=== PATIENT | female | born 1935 | race Caucasian/White ===

== ENCOUNTER → 2018-02-25 10:27 | Outpatient (CLI) | payer MEDICARE, OTHER, SELFPAY ==
--- NOTE | 2018-02-25 10:44 | XR_ITS ---
XR foot RT min 3V HISTORY: Posttraumatic pain ITS.REASON: RT FOOT PAIN ORDERING PHYSICIAN: Skinny Mackay MD PATIENT AGE: 82 years COMPARISON: None FINDINGS: There are osteoarthritic changes at the first metatarsophalangeal joint with some heterogeneity of the distal aspect of the first metatarsal. Has the patient had prior surgery?. There is mild soft tissue swelling at the medial aspect of the first MTP joint with minimal hallux valgus. There is also minimal soft tissue calcification medially at the first MTP joint. There is fusion of the PIP joint of the second digit and soft tissue calcification is noted laterally at the PIP joint of the fifth digit. No fracture or dislocation. The sesamoids at the distal aspect of the first metatarsal are slightly displaced laterally. IMPRESSION: 1. No acute fracture. 2. 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
== END ==
PROVIDERS: PCP Internal Medicine Adolescent Medicine; Visit Provider Internal Medicine Adolescent Medicine
DX: M79.671 Pain in right foot (principal)
CPT/HCPCS: 73630

== ENCOUNTER → 2018-02-26 10:09 | Outpatient (CLI) | payer MEDICARE, OTHER, SELFPAY ==
[2018-02-26 10:30] LABS: Basophils % 0.8 % (0.1-2.0); Eosinophils # 0.2 K/mm3 (0.0-0.4); Eosinophils % 2.6 % (0.1-12.0); Hematocrit 41.9 % (37.0-47.0); Hemoglobin 13.8 g/dL (12.2-16.2); Lymphocytes # 2.2 K/mm3 (0.7-4.5); Lymphocytes % 36.9 K/mm3 (10-50); Mean Corpuscular Hemoglobin 31.8 pg (27.0-31.2); Mean Corpuscular Volume 96.4 fl (81-99); Mean Platelet Volume 6.6 fl (7.4-10.4); Monocytes # 0.4 K/mm3 (0.1-1.0); Monocytes % 7.2 % (1.7-9.3); Neutrophils # 3.1 K/mm3 (1.8-7.8); Neutrophils % 52.5 % (37.0-80.0); Platelet Count 282 K/mm3 (142-424); Red Blood Count 4.35 M/mm3 (4.20-5.40); Red Cell Distribution Width 12.4 % (11.5-17.5); White Blood Count 5.9 K/mm3 (4.8-10.8)
[2018-02-26 11:43] LABS: Alanine Aminotransferase 30 U/L (12-78); Albumin Level 3.5 gm/dL (3.4-5.0); Alkaline Phosphatase 118 U/L (46-116); Anion Gap 13.1 mEq/L (5-15); Aspartate Amino Transferase 25 U/L (15-37); Bilirubin,Total 0.7 mg/dL (0.2-1.0); Blood Urea Nitrogen 16 mg/dL (7-18); Calcium 8.9 mg/dL (8.5-10.1); Carbon Dioxide 28 mmol/L (21.0-32.0); Chloride 104 mmol/L (98-107); Chol/HDL Ratio 3.4 (1-3.5); Cholesterol 173 mg/dL (140-200); Creatinine,Serum 0.75 mg/dL (0.55-1.02); Estimated Glomerular Filt Rate 74 ml/min (>60); Free Thyroxine Index 2.1 ug/dL (5.93-13.13); GFR (African American) 90 ML/MIN (>60); Globulin 3.4 gm/dl (1.3-3.2); Glucose 116 mg/dL (74-106); HDL Cholesterol 51 mg/dL (29-89); LDL Cholesterol 98 mg/dL (0-130); Potassium 5.1 mmoL/L (3.5-5.1); Sodium 140 mmol/L (136-145); T4 (Thyroxine) 6.3 ug/dl (4.7-13.3); Thyroid Stimulating Hormone 6.56 uIU/ml (0.358-3.740); Total Protein,Serum 6.9 gm/dL (6.4-8.2); Triglycerides 122 mg/dL (30-200); Triiodothryronine (T3) Uptake 33 % (31-39); VLDL Cholesterol 24 mg/dL (0-40)
[2018-02-26 12:05] LABS: Hemoglobin A1C 6.5 % (0.0-7.0)
== END ==
PROVIDERS: Visit Provider Internal Medicine Adolescent Medicine
DX: J84.10 Pulmonary fibrosis, unspecified (principal); R73.9 Hyperglycemia, unspecified; I10 Essential (primary) hypertension; E03.9 Hypothyroidism, unspecified
CPT/HCPCS: 36415; 80053; 80061; 83036; 84436; 84443; 84479; 85025

== ENCOUNTER → 2018-04-15 16:31 | Outpatient (CLI) | payer MEDICARE, OTHER, SELFPAY ==
--- NOTE | 2018-04-15 16:36 | MM_ITS ---
MM Dig screening mamm BI w/CAD CAD Screening COMPARISON: Digital mammograms with CAD 10/01/2016 and 09/28/2015 from [place], [place] INDICATION: There is a history of breast cancer in the patient's half sister diagnosed after menopause. TECHNIQUE: Standard CC and MLO images were obtained. R2 CAD reviewed. FINDINGS: The breasts are composed primarily of fat with minimal scattered fibroglandular densities throughout each breast. There are couple benign-appearing calcifications in each breast. There is no suspicious lesion and there are no suspicious microcalcifications. IMPRESSION: Fatty type breast parenchyma with no suspicious lesion seen BI-RADS Category: 2 Benign Finding(s) RECOMMENDED FOLLOW-UP: 1YR - 1 YEAR FOLLOW-UP (A letter has been sent to the patient regarding results of the study.)
== END ==
PROVIDERS: PCP Internal Medicine Adolescent Medicine; Visit Provider Internal Medicine Adolescent Medicine
DX: Z12.31 Encounter for screening mammogram for malignant neoplasm of breast (principal)
CPT/HCPCS: 77067

== ENCOUNTER → 2018-07-01 11:53 | Outpatient (CLI) | payer MEDICARE, SELFPAY ==
[2018-07-01 13:16] LABS: Thyroid Stimulating Hormone 4.28 uIU/ml (0.358-3.740)
== END ==
PROVIDERS: Visit Provider Internal Medicine Adolescent Medicine
DX: E03.9 Hypothyroidism, unspecified (principal)
CPT/HCPCS: 36415; 84443

== ENCOUNTER → 2018-07-08 16:30 | Outpatient (CLI) | payer MEDICARE, SELFPAY ==
--- NOTE | 2018-07-08 16:37 | XR_ITS ---
XR hip LT 2-3V w/pelvis HISTORY: Hip pain following injury ORDERING PHYSICIAN: Skinny Mackay MD PATIENT AGE: 83 years COMPARISON: None FINDINGS: There are mild osteoarthritic changes with some mild bony spurring at the acetabulum. No acute fracture or dislocation. IMPRESSION: Mild osteoarthritis, no acute finding
--- NOTE | 2018-07-08 16:37 | XR_ITS ---
EXAM: XR lumbar spine min 4V HISTORY: Low back pain following injury ORDERING PHYSICIAN: Skinny Mackay MD PATIENT AGE: 83 years COMPARISON: None FINDINGS: There is mild thoracolumbar curvature convex right. Multilevel degenerative disc disease is present from L2 to S1. Endplate osteophytes are present with decrease in the disc spaces. Facet arthritic changes are also noted from L3 to S1. No acute fracture or dislocation is evident. No lytic or blastic change. IMPRESSION: Scoliosis with degenerative disc disease and facet arthritic change, no acute finding
--- NOTE | 2018-07-08 16:38 | XR_ITS ---
XR hip RT 2-3V w/pelvis HISTORY: ITS.REASON: LUMBAR PAIN, BILATERAL HIP PAIN ORDERING PHYSICIAN: Skinny Mackay MD PATIENT AGE: 83 years COMPARISON: None FINDINGS: There are mild osteoarthritic changes of the right hip. No acute fracture or dislocation is evident. A well-circumscribed calcific density is present at the greater trochanter and could be due to an old avulsion injury or accessory center of ossification IMPRESSION: Osteoarthritis, no acute finding
== END ==
PROVIDERS: PCP Internal Medicine Adolescent Medicine; Visit Provider Internal Medicine Adolescent Medicine
DX: M54.5 Low back pain (principal); M25.552 Pain in left hip; M25.551 Pain in right hip
CPT/HCPCS: 72110; 73502

== ENCOUNTER → 2019-03-17 10:52 | Outpatient (CLI) | payer MEDICARE, SELFPAY ==
--- NOTE | 2019-03-17 10:55 | XR_ITS ---
PROCEDURE: XR CHEST 2V CLINICAL HISTORY: COUGH Cough, infection COMPARISON: CXR CHEST(2 VIEWS-NOT PORTABLE) from 10/12/2015 FINDINGS: Borderline cardiomegaly without failure. There are increased markings in the right lung base which could be due to patchy area of infiltrate. Tortuosity/ectasia involves the descending thoracic aorta. No acute bony abnormalities. IMPRESSION: Patchy infiltrate in the right lower lobe Dictated by: Hiram Macias MD 03/17/2019 18:17 Electronically signed by Hiram Macias MD in [facility] 03/17/2019 18:17
== END ==
PROVIDERS: PCP Internal Medicine Adolescent Medicine; Visit Provider Internal Medicine Adolescent Medicine
DX: R05 Cough (principal)
CPT/HCPCS: 71046

== ENCOUNTER → 2019-04-03 12:08 | Outpatient (CLI) | payer MEDICARE, SELFPAY ==
--- NOTE | 2019-04-03 12:16 | XR_ITS ---
PROCEDURE: XR CHEST 2V CLINICAL HISTORY: PNEUMONIA OF RIGHT LOWER LOBE COMPARISON: CXR CHEST(2 VIEWS-NOT PORTABLE) from 10/12/2015 XR CHEST 2V from 03/17/2019 FINDINGS: The cardiomediastinal silhouette and pulmonary vascularity are within normal limits. There is chronic coarsening of the bronchovascular markings. No lobar consolidation or collapse is evident. Patchy density previously noted in the lung base on the right is improved. No acute bony abnormalities. IMPRESSION: No acute findings. Dictated by: Hiram Macias MD 04/03/2019 12:24 Electronically signed by Hiram Macias MD in [facility] 04/03/2019 12:24
== END ==
PROVIDERS: PCP Internal Medicine Adolescent Medicine; Visit Provider Nurse Practitioner Family
DX: J18.9 Pneumonia, unspecified organism (principal)
CPT/HCPCS: 71046

== ENCOUNTER → 2019-07-02 11:01 | Outpatient (CLI) | payer MEDICARE, SELFPAY ==
--- NOTE | 2019-07-02 11:09 | XR_ITS ---
PROCEDURE: XR CHEST 2V CLINICAL HISTORY: COUGH,PULMONARY FIBROSIS COMPARISON: CXR CHEST(2 VIEWS-NOT PORTABLE) from 10/12/2015 XR CHEST 2V from 03/17/2019 XR CHEST 2V from 04/03/2019 FINDINGS: The lung kolb are well-expanded and appear clear of infiltrate. There may be minimal scarring or atelectasis at the left costophrenic angle. Cardiac size is normal though there is mild aortic tortuosity. The vascularity is normal. There is no pleural fluid. There are mild multilevel degenerate changes of the lower thoracic spine. IMPRESSION: No acute findings. Dictated by: Dr. Isai Guillen MD 07/02/2019 12:[address] Isai Guillen MD in [facility] 07/02/2019 12:17
== END ==
PROVIDERS: PCP Internal Medicine Adolescent Medicine; Visit Provider Internal Medicine Adolescent Medicine
DX: R05 Cough (principal); J84.112 Idiopathic pulmonary fibrosis
CPT/HCPCS: 71046

== ENCOUNTER → 2019-11-25 14:09 | Outpatient (CLI) | payer MEDICARE, SELFPAY | PROVIDERS: PCP Internal Medicine Adolescent Medicine; Visit Provider Internal Medicine Adolescent Medicine | DX: R06.00 Dyspnea, unspecified (principal) | CPT/HCPCS: 94060; 94618; 94726; 94729 ==

== ENCOUNTER → 2019-12-16 10:19 | Outpatient (CLI) | payer MEDICARE, SELFPAY ==
--- NOTE | 2019-12-16 10:22 | CT_ITS ---
PROCEDURE: CT CHEST WO CON CLINICAL INDICATION: IDIOPATHIC PULMONARY FIBROSIS Soa, idiopathic pulm. Fibrosis No prior COMPARISON: No exams were available for comparison TECHNIQUE: Axial images obtained with sagittal and coronal reformats. All CT scans at the facility use one or more dose reduction, viz: automated exposure control, ma/kV adjustment per patient size (including targeted exams where dose is matched to indication, i.e. head), or iterative reconstruction technique. FINDINGS: HEART AND MEDIASTINAL STRUCTURES: No mediastinal or hilar mass or adenopathy. There is a small hiatal hernia with mild nonspecific thickening of the distal esophagus. LUNGS AND PLEURAL SPACES: Regular and high-resolution images are obtained. There is peripheral interlobular septal thickening most prominent in the lung bases with some minimal honeycombing in the lung bases. No lobar consolidation or collapse. There is a calcified granuloma in the right lung base. BONY STRUCTURES: No acute bony abnormalities apparent. UPPER ABDOMEN: Prior cholecystectomy ADDITIONAL FINDINGS: No other significant abnormalities. IMPRESSION: Pulmonary fibrosis as described above with some mild honeycombing in the lung bases. Dictated by: Hiram Macias MD 12/17/2019 10:46 Hiram Macias MD in [facility] 12/17/2019 10:46
== END ==
PROVIDERS: PCP Internal Medicine Adolescent Medicine; Visit Provider Internal Medicine Adolescent Medicine
DX: J84.112 Idiopathic pulmonary fibrosis (principal)
CPT/HCPCS: 71250

== ENCOUNTER → 2019-12-27 14:18 | Outpatient (CLI) | payer MEDICARE, SELFPAY ==
--- NOTE | 2019-12-27 14:19 | CA_ITS ---
APPROVED REPORT EXAM: Comprehensive 2D, Doppler, and color-flow Echocardiogram Still Operator Whiskey: Osiris Patel RDCS Ht: 5 ft 6 in Wt: 156lbs BSA: 1.80 BP: 110/70 mmHg Indications: SOA,PULMONARY FIBROSIS 2D Dimensions LVOT 2.08 cm (M/F) 1.5-2.5 M-Mode Dimensions RVDd 2.61 cm (0.9-2.6) LVDd 4.87 cm (3.5-5.7) LVDs 3.29 cm (3.5-5.7) IVSd 0.74 cm (0.6-1.1) PWd 0.74 cm (0.6-1.1) EF (Teich) 60.60% FS 32.40% EDV (Teich) 111.20 mL ESV (Teich) 43.80 mL LV Diastology E/A Ratio 0.45 Mitral Valve MV A Velocity 92.00 (40-130 cm/s) Left Ventricle Left atrium is mildly enlarged, left ventricle is normal size, mild concentric left ventricular hypertrophy, visually estimated ejection fraction 55% with no regional wall motion abnormality, grade 1 diastolic dysfunction seen without tissue Doppler evidence of raise left atrial pressure. Right Ventricle Right atrium and right ventricular normal size and contractility. Aortic Valve Aortic valve is minimally thickened and fibrosed, there is no aortic stenosis, there is mild aortic insufficiency. Mitral Valve Mitral valve is minimally thickened, there is mild mitral regurgitation. Tricuspid Valve Tricuspid valve is grossly normal, there is mild tricuspid regurgitation, tricuspid regurgitation jet velocity is inadequate for calculation of the right ventricular systolic pressure. Pulmonic Valve Pulmonic valve is poorly visualized. Great Vessels Aortic root is normal size. Pericardium No significant pericardial effusion noted. Conclusion 1. Mildly enlarged left atrium, normal left ventricular size, mild concentric left ventricular hypertrophy, visually estimated ejection fraction 55% with no regional wall motion abnormality, grade 1 diastolic dysfunction seen without tissue Doppler evidence of raise left atrial pressure. 2. Thickened and calcified aortic valve without aortic stenosis, there is trace aortic insufficiency. 3. Mild mitral and tricuspid regurgitation. 4. No significant pericardial effusion noted. Electronically signed by : Shashank Neal, 12/27/2019 19:11:48
== END ==
PROVIDERS: PCP Internal Medicine Adolescent Medicine; Visit Provider Internal Medicine Pulmonary Disease
DX: R06.00 Dyspnea, unspecified (principal)
CPT/HCPCS: 93306

== ENCOUNTER → 2019-12-30 12:22 | Outpatient (CLI) | payer MEDICARE, SELFPAY ==
[2019-12-30 13:01] LABS: Basophils # 0.1 K/mm3 (0-0.2); Basophils % 0.8 % (0.1-2.0); Eosinophils # 0.3 K/mm3 (0.0-0.4); Eosinophils % 3.6 % (0.1-12.0); Hematocrit 45.3 % (37.0-47.0); Lymphocytes # 3.2 K/mm3 (0.7-4.5); Lymphocytes % 36.6 % (10-50); Mean Corpuscular HGB Conc 33.1 g/dL (31.8-35.4); Mean Corpuscular Hemoglobin 32.5 pg (27.0-31.2); Mean Corpuscular Volume 98.1 fl (81-99); Mean Platelet Volume 6.8 fl (7.4-10.4); Monocytes # 0.6 K/mm3 (0.1-1.0); Monocytes % 7.1 % (1.7-9.3); Neutrophils # 4.6 K/mm3 (1.8-7.8); Platelet Count 290 K/mm3 (142-424); Red Blood Count 4.62 M/mm3 (4.20-5.40); Red Cell Distribution Width 12.9 % (11.5-17.5); White Blood Count 8.8 K/mm3 (4.8-10.8)
[2019-12-30 13:47] LABS: Anion Gap 12.8 mEq/L (5-15); Blood Urea Nitrogen 13 mg/dl (7-17); Calcium 9.5 mg/dl (8.4-10.2); Carbon Dioxide 30 mmol/L (22.0-30.0); Chloride 97 mmol/L (98-107); Estimated Glomerular Filt Rate 80 ml/min (>60); GFR (African American) 97 ML/MIN (>60); Glucose 119 mg/dl (74-100); Potassium 4.8 mmoL/L (3.5-5.1); Sodium 135 mmol/L (136-145)
[2019-12-30 13:56] LABS: NT Pro Brain Natriuretic Pep. 225 pg/mL (0-450)
[2019-12-30 15:43] LABS: Coronavirus 19 IgG Antibody Negative (Negative); Coronavirus 19 IgM Antibody Negative (Negative)
== END ==
PROVIDERS: Visit Provider Internal Medicine Cardiovascular Disease
DX: R06.00 Dyspnea, unspecified; R60.0 Localized edema; Z86.73 Personal history of transient ischemic attack (TIA), and cerebral infarction without residual deficits; Z03.818 Encounter for observation for suspected exposure to other biological agents ruled out
CPT/HCPCS: 36415; 80048; 83880; 85025; 86328

== ENCOUNTER 2019-12-31 13:55 | Outpatient (RCR) | payer MEDICARE, SELFPAY | END 2020-04-18 15:21 | disposition home or self-care (01) | LOC: PT 13:55 | PROVIDERS: Visit Provider Internal Medicine Pulmonary Disease | DX: J84.10 Pulmonary fibrosis, unspecified (principal); J84.112 Idiopathic pulmonary fibrosis | CPT/HCPCS: G0237; G0238; G0239 ==

== ENCOUNTER → 2020-01-07 10:14 | Outpatient (CLI) | payer MEDICARE, SELFPAY ==
--- NOTE | 2020-01-07 | CA_ITS ---
APPROVED REPORT Exam: Pharmacologic Technologist: Dinorah Allen, Ht: 5 ft 5 in Wt: 155 lbs BSA: 1.77 m2 Medical History Medications: Asa,,,,, Lasix,,,,, Allergies: ANTIBIOTIC UNSURE OF NAME Stress Test Details Test: LEXISCAN HR Resting HR: 73 bpm Max Heart Rate (APMHR): 138 bpm Max HR Achieved: 91 bpm Target HR (85% APMHR): 117 bpm % of APMHR: 65 BP Resting BP: 159/96 mmHg Max BP: 159/96 mmHg Recovery BP: 154.0/73.0 mmHg ECG Resting ECG: SINUS RHYTHM (ABNORMAL EKG) PAC Clinical Exercise duration: 04:00 min Highest Stage Achieved: Exercise capacity: 1.0 METs Stress ECG Conclusion LEXISCAN MYOVIEW COMPLETE. PATIENT DENIED ANY SYMPTOMS DURING PEAK EXERCISE. NO CHEST PAIN. NO SOA. NO NAUSEA/VOMITING. OCCASIONAL PVC. OCCASIONAL PAC. OCCASIONAL ATRIAL COUPLET. LESS THAN 1.5MM ST DEPRESSION. IMAGES TO FOLLOW Electronically signed by : Shashank Neal, 01/10/2020 22:16:27
--- NOTE | 2020-01-07 10:15 | NM_ITS ---
APPROVED REPORT Exam: Nuclear Stress Test Indication: SOB Patient Location: Outpatient Stress Tech: Delilah Piercenkson AL Tech:LEYLA Neri RT(R)(N) Ht: 5 ft 5 in Wt: 145 lbs Bra Size: 38D HR: 62 bpm BP: 159/96 mmHg BSA: 1.73 m2 BMI: 24.1 History: SOB Procedure: Patient received a 0.4 mg of intravenous Lexiscan, resting heart rate 62 bpm, resting blood pressure 159/96 mmHg, with Lexiscan maximum heart rate achived was 88 bpm which is Less than 85 % of the maximum predicted heart rate and blood pressure was 104/74 mmHg. With Lexiscan, patient denied any complaint of chest pain. Electrocardiogram Resting electrocardiogram showed sinus rhythm nonspecific ST-T changes, with Lexiscan there is less than 1.[address] segment depression noted from the baseline EKG. The EKG portion of the Lexiscan Myoview is nondiagnostic. Cardiac Stress and Resting SPECT Images: Cardiac Stress and Resting SPECT images were obtained using technetium 99m Myoview 31.0 mCi stress and 10.42 mCi at rest. Gated SPECT for analysis of segmental wall motion and calculation of the ejection fraction also done. Cardiac stress and resting SPECT images show uniform myocardial activity without segmental perfusion abnormality, computer derived ejection fraction is 64% with no regional wall motion abnormality, right ventricle is normal size and contractility. Conclusion: 1. The EKG portion of the Lexiscan Myoview is nondiagnostic. 2. No scintigraphic evidence of reversible ischemia seen, computer derived ejection fraction is 64% with no regional wall motion abnormality, right ventricle is normal size and contractility. 3. Normal Lexiscan Myoview study. Electronically signed by : Shashank Neal, 01/10/2020 22:23:04
--- NOTE | 2020-01-07 13:19 | HMH.ITSHM ---
Current Home Medications as stated by this patient Jose Benitez or compliance representative. [] asa
[2020-01-07 13:38] LABS: Chloride 98 mmol/L (98-107); Sodium 137 mmol/L (136-145)
[2020-01-07 13:39] LABS: Potassium 5.1 mmoL/L (3.5-5.1)
[2020-01-07 13:41] LABS: Blood Urea Nitrogen 16 mg/dl (7-17); Estimated Glomerular Filt Rate 80 ml/min (>60); GFR (African American) 97 ML/MIN (>60)
[2020-01-07 13:42] LABS: Anion Gap 14.1 mEq/L (5-15); Calcium 9.6 mg/dl (8.4-10.2); Carbon Dioxide 30 mmol/L (22.0-30.0); Glucose 142 mg/dl (74-100)
[2020-01-07 13:45] LABS: NT Pro Brain Natriuretic Pep. 200 pg/mL (0-450)
== END ==
PROVIDERS: PCP Internal Medicine Adolescent Medicine; Visit Provider Internal Medicine Cardiovascular Disease
DX: R06.00 Dyspnea, unspecified; R60.0 Localized edema; Z86.73 Personal history of transient ischemic attack (TIA), and cerebral infarction without residual deficits; I51.89 Other ill-defined heart diseases
CPT/HCPCS: 36415; 78452; 80048; 83880; 93017; A9502; G0237; G0238; J2785

== ENCOUNTER 2020-03-17 09:00 | Outpatient (RCR) | payer MEDICARE, SELFPAY ==
--- NOTE | 2020-02-16 15:54 | HMH.PTOPEV ---
PT Outpatient Evaluation Rehab PT Outpatient Evaluation Start: 02/16/20 14:50 Freq: Status: Active Protocol: Document 02/16/20 15:34 JERSON (Rec: 02/16/20 15:53 PHORNE [id number]) Electronically Signed By Denys Barnes, PT 02/16/20 15:34 Outpatient Therapy Subjective History Subjective History Pt is 84 yowf who presents with c/o pain in the R shld x ~ 6 wks with insidious onset of symptoms. She reports pain with reaching the R UE overhead and pulling with her R arm. She reports pain is only intermittent and dependent on her activity. She reports PMH of pulmonary fibrosis and TIA. Chief Complaint Pain Symptom Type Ache Symptoms Relieved By Rest/Positioning Symptoms Aggravated By Lifting Prior Functional Limitations None Current Functional Limitations Reaching,Lifting Symptom Description Intermittent,Activity Dependent Level of pain today (0-10) 6 Pain scale - at its worst (0-10) 10 Shoulder/Elbow Eval Shoulder Objective Measurements Posture Shoulder Posture Sitting Position (L) Rounded,(R) Rounded Shoulder ROM Right Shoulder Abduction Active Range of 0-120 Motion (degrees) Shoulder Abduction Passive Range of 0-150 Motion (degrees) Shoulder Flexion Active Range of Motion 0-120 (degrees) Query Text: Shoulder Flexion Passive Range of Motion 0-150 (degrees) Shoulder External Rotation Active Range 0-50 of Motion (degrees) Shoulder External Rotation Passive Range 0-75 of Motion (degrees) Shoulder Internal Rotation Active Range 0-50 of Motion (degrees) Shoulder Internal Rotation Passive Range 0-70 of Motion (degrees) Shoulder MMT Anterior Deltoid Strength Grade 4 Good Shoulder Abduction Strength Grade 4 Good Shoulder Flexion Strength Grade 4 Good Shoulder External Rotation Strength 4 Good Grade Shoulder Internal Rotation Strength 5 Normal Grade Supraspinatus Strength Grade 4 Good Shoulder Special Tests Shoulder Cross-Over Impingement Test Negative Left,Positive Right Shoulder Anterior Drawer Test Negative Left,Negative Right Shoulder Empty Can (Supraspinatus) Test Negative Left,Negative Right Shoulder Reyes-Daniel Impingement Negative Left,Positive Right Test Shoulder Anterior Load and Shift Test Negative Left,Negative Right Shoulder Posterior Load and Shift Test
== END 2020-03-17 09:05 | disposition home or self-care (01) ==
LOC: PT 09:00
PROVIDERS: PCP Internal Medicine Adolescent Medicine; Visit Provider Internal Medicine Adolescent Medicine
DX: M25.511 Pain in right shoulder (principal)
CPT/HCPCS: 97010; 97014; 97016; 97033; 97110; 97163; G0283

== ENCOUNTER → 2020-08-02 10:00 | Outpatient (CLI) | payer MEDICARE, SELFPAY ==
[2020-08-02 10:29] LABS: Basophils # 0.1 K/mm3 (0-0.2); Basophils % 0.8 % (0.1-2.0); Eosinophils # 0.3 K/mm3 (0.0-0.4); Eosinophils % 3.5 % (0.1-12.0); Hematocrit 46.2 % (37.0-47.0); Hemoglobin 15.2 g/dL (12.2-16.2); Lymphocytes # 2.9 K/mm3 (0.7-4.5); Lymphocytes % 35.7 % (10-50); Mean Corpuscular Hemoglobin 32.2 pg (27.0-31.2); Mean Corpuscular Volume 97.7 fl (81-99); Mean Platelet Volume 7.5 fl (7.4-10.4); Monocytes # 0.6 K/mm3 (0.1-1.0); Monocytes % 7.4 % (1.7-9.3); Neutrophils # 4.2 K/mm3 (1.8-7.8); Neutrophils % 52.7 % (37.0-80.0); Platelet Count 272 K/mm3 (142-424); Red Blood Count 4.73 M/mm3 (4.20-5.40); Red Cell Distribution Width 12.7 % (11.5-17.5)
[2020-08-02 11:01] LABS: Chloride 105 mmol/L (98-107); Potassium 5.3 mmoL/L (3.5-5.1); Sodium 139 mmol/L (136-145)
[2020-08-02 11:04] LABS: Alanine Aminotransferase 23 U/L (12-78); Albumin Level 4.5 g/dl (3.5-5.0); Albumin/Globulin Ratio 1.6 (1.1-1.8); Alkaline Phosphatase 117 U/L (38-126); Anion Gap 8.3 mEq/L (5-15); Aspartate Amino Transferase 36 U/L (14-36); Blood Urea Nitrogen 19 mg/dl (7-17); Carbon Dioxide 31 mmol/L (22.0-30.0); Cholesterol 209 mg/dl (140-200); Estimated Glomerular Filt Rate 69 ml/min (>60); GFR (African American) 83 ML/MIN (>60); Globulin 2.9 g/dL (1.3-3.2); Total Protein,Serum 7.4 g/dl (6.3-8.2); Triglycerides 135 mg/dl (30-150); VLDL Cholesterol 27 mg/dL (0-40)
[2020-08-02 11:05] LABS: Calcium 9.6 mg/dl (8.4-10.2); Chol/HDL Ratio 3.7 (1-3.5); Glucose 137 mg/dl (74-100); HDL Cholesterol 56 mg/dl (40-60)
[2020-08-02 11:17] LABS: Direct LDL Cholesterol 109.95 mg/dL (100-129)
[2020-08-02 11:36] LABS: Thyroid Stimulating Hormone 3.27 uIU/mL (0.465-4.68)
== END ==
PROVIDERS: Visit Provider Internal Medicine Adolescent Medicine
DX: E11.9 Type 2 diabetes mellitus without complications (principal); E03.9 Hypothyroidism, unspecified; J84.10 Pulmonary fibrosis, unspecified
CPT/HCPCS: 36415; 80053; 80061; 83036; 84443; 85025

== ENCOUNTER → 2020-08-24 10:55 | Outpatient (CLI) | payer MEDICARE, SELFPAY ==
[2020-08-24 11:23] LABS: Basophils # 0.1 K/mm3 (0-0.2); Basophils % 0.8 % (0.1-2.0); Eosinophils # 0.2 K/mm3 (0.0-0.4); Eosinophils % 2.5 % (0.1-12.0); Hematocrit 45.9 % (37.0-47.0); Hemoglobin 14.4 g/dL (12.2-16.2); Lymphocytes # 3.4 K/mm3 (0.7-4.5); Lymphocytes % 37.7 % (10-50); Mean Corpuscular HGB Conc 31.4 g/dL (31.8-35.4); Mean Corpuscular Hemoglobin 31.3 pg (27.0-31.2); Mean Corpuscular Volume 99.8 fl (81-99); Monocytes # 0.6 K/mm3 (0.1-1.0); Neutrophils # 4.8 K/mm3 (1.8-7.8); Neutrophils % 53.1 % (37.0-80.0); Platelet Count 252 K/mm3 (142-424); Red Cell Distribution Width 12.5 % (11.5-17.5); White Blood Count 9.1 K/mm3 (4.8-10.8)
[2020-08-24 11:29] LABS: Chloride 103 mmol/L (98-107)
[2020-08-24 11:30] LABS: Potassium 4.5 mmoL/L (3.5-5.1); Sodium 139 mmol/L (136-145)
[2020-08-24 11:32] LABS: Alanine Aminotransferase 21 U/L (12-78); Aspartate Amino Transferase 33 U/L (14-36); Blood Urea Nitrogen 20 mg/dl (7-17); Estimated Glomerular Filt Rate 69 ml/min (>60); GFR (African American) 83 ML/MIN (>60)
[2020-08-24 11:33] LABS: Albumin Level 4.3 g/dl (3.5-5.0); Albumin/Globulin Ratio 1.6 (1.1-1.8); Alkaline Phosphatase 102 U/L (38-126); Anion Gap 11.5 mEq/L (5-15); Bilirubin,Total 0.8 mg/dl (0.2-1.3); Calcium 9.2 mg/dl (8.4-10.2); Carbon Dioxide 29 mmol/L (22.0-30.0); Globulin 2.7 g/dL (1.3-3.2); Glucose 139 mg/dl (74-100); Iron 111 ug/dL (37-170); Magnesium 1.9 mg/dl (1.6-2.3)
[2020-08-24 11:42] LABS: Total Iron Binding Capacity 289 ug/dL (265-497)
[2020-08-24 12:08] LABS: Ferritin 162 ng/ml (11.1-264)
== END ==
PROVIDERS: Visit Provider Internal Medicine Adolescent Medicine
DX: G25.81 Restless legs syndrome (principal); E11.9 Type 2 diabetes mellitus without complications; E03.9 Hypothyroidism, unspecified; J84.10 Pulmonary fibrosis, unspecified
CPT/HCPCS: 36415; 80053; 82728; 83540; 83550; 83735; 85025

== ENCOUNTER → 2020-09-18 12:00 | Outpatient (CLI) | payer MEDICARE, SELFPAY | PROVIDERS: Visit Provider Surgery | DX: Z01.812 Encounter for preprocedural laboratory examination (principal); Z20.822 Contact with and (suspected) exposure to COVID-19; K21.00 Gastro-esophageal reflux disease with esophagitis, without bleeding; Z13.810 Encounter for screening for upper gastrointestinal disorder | CPT/HCPCS: U0003 ==

== ENCOUNTER 2020-09-20 06:45 | Day surgery (SDC) | payer MEDICARE, SELFPAY ==
[2020-09-18 16:05] VITALS: BMI 24.1
[2020-09-20] VITALS (9 sets, daily range): BP systolic 137–197; BP diastolic 70–116; PULSE 62–109; RESP 18; TEMP 36.1–36.3; O2SAT 96–97
--- NOTE | 2020-09-20 07:20 | HMH.SCOPE ---
- Procedure: Date: 09/20/20 Patient Date of :: 1935 Procedure Performed:: Esophagogastroduodenoscopy with biopsies Indications:: Patient is an 85-year-old female referred by Dr. Skinny Mackay for upper endoscopy. Patient states that she has a lung condition . This appears to be pulmonary fibrosis. She states that she has a longstanding history of acid reflux type symptoms. However, recently over the past month her symptoms have been worse. She describes choking sensation and coughing. She has burning in the upper chest and neck area. This seems to be worse as the day goes on. Tomato paste and wine tend to be more problematic. She states that she is on no medications for reflux or dyspepsia at this time. Performing Provider:: Flavio Hernandez MD Referring Provider:: Skinny Mackay MD Sedation:: MAC sedation Procedure:: Patient was taken to endoscopy procedure room. She was positioned in lateral decubitus position. Adequate intravenous sedation was achieved with anesthesia titration of propofol. Olympus endoscope was inserted via the oropharynx and advanced through the esophagus. Overall esophagus appeared unremarkable. However, the distal esophagus there was some minor erosive esophagitis. Gastroesophageal junction was encountered at 35 cm from the incisors. Stomach was cannulated and insufflated. She had a moderately large sliding hiatal hernia. Gastric lumen appeared unremarkable. Pylorus was traversed and the endoscope was advanced into the distal duodenum which appeared unremarkable. Endoscope was withdrawn into the stomach and gastric mucosal biopsy was obtained for CLOtest for H. pylori. Gastric antral biopsy was obtained for histopathologic analysis. A couple of biopsies were obtained of the distal esophagus. Endoscope was withdrawn. Findings:: Mild distal erosive esophagitis Moderately large sliding hiatal hernia Recommendations:: Follow-up on histopathology results. May benefit from H2 blockers or proton pump inhibitors. Complications:: None immediately apparent Estimated blood obtained (mL): 3
--- NOTE | 2020-09-20 10:52 | P.PN_ITS ---
[facility] Anesthesia Checklist - Patient Identification Patient Identification: Arm Band - Structural Data Admitted From: Home Planned Operative Procedure/s: EGD Consent for Planned Operative Procedure(s) Verified: Yes Verified Documents: Surgical Consent, History and Physical - NPO Status Verified Time NPO: 00:00 - Airway Assessment C-Spine Mobility Assessed: Yes TMJ Mobility Assessed: Yes Dentition: Good Dentition - Neurological Assessment Level of Consciousness: Awake, Alert - Anesthesia Plan Anesthesia Risk discussed: Yes Anesthesia Plan: Verified ASA Class: II Anesthesia Type: MAC [facility] History Medical History: Reports:: Hyperlipidemia, Hypertension, Transient Ischemic Attacks (TIA) Denies:: Cancer, Diabetes Mellitus Type 1, Diabetes Mellitus Type 2, Internal Pacemaker, MRSA, Seizures *Have you ever received a pneumonia vaccine?: Yes *Have you received a flu vaccine this season?: Yes Anesthesia experience/problems:: None Other Surgeries: Yes: Appendectomy, Colonoscopy. No: Pacemaker Amputation: No Fractures: No - *Social History Last grade of school completed: High school graduate Smoking Status: Never smoker Alcohol Intake: current Alcohol Intake Frequency:: holidays/special occasions only Substance Use Type: denies use *Occupational Status:: retired Housing: house *Travel in the last 8 weeks: None Family Hx:: Diabetes
== END 2020-09-20 08:51 | disposition home or self-care (01) ==
PROVIDERS: PCP Internal Medicine Adolescent Medicine; Visit Provider Surgery
PROC: 0DJ08ZZ Inspection of Upper Intestinal Tract, Via Natural or Artificial Opening Endoscopic (ICD-10-PCS; CPT 43235; principal; 2020-09-20 09:45)
DX: K21.00 Gastro-esophageal reflux disease with esophagitis, without bleeding (principal); K44.9 Diaphragmatic hernia without obstruction or gangrene
CPT/HCPCS: 43239; 87339; 88305

== ENCOUNTER → 2021-08-31 07:15 | Outpatient (CLI) | payer MEDICARE, SELFPAY ==
--- NOTE | 2021-08-31 07:31 | MR_ITS ---
FINAL REPORT CLINICAL HISTORY: ATAXIA. stroke x2wk ago. FINDINGS: Multi planar MR imaging was obtained through the brain without contrast. The midline structures appear intact. There is no evidence of Chiari malformation. There are multiple lacunar infarcts in the right frontal white matter and left basal ganglia. An old right frontal cortical infarct is seen. On the diffusion-weighted imaging there is a focus of abnormal restricted diffusion in the right parietal deep white matter on images 19 and 20 with corresponding decreased signal on ADC map imaging consistent with small acute subcortical infarct. The visualized paranasal sinuses demonstrate normal signal voids. The seventh and eighth nerve root complexes are intact. IMPRESSION: Focus of abnormal restricted diffusion in the right parietal deep white matter consistent with small, acute subcortical infarct. No prior exam is available for comparison. Reviewed, Interpreted and Dictated by Ian Flores MD Transcribed by Jennifer Morales Authenticated by Ian Flores MD on 08/31/2021 09:18:16 AM [facility]
--- NOTE | 2021-08-31 08:19 | CA_ITS ---
FINAL REPORT CLINICAL HISTORY: .EXPRESSIVE DYSPHASIA,ATAXIA,H/O CVA FINDINGS: An ultrasound of the carotid arteries was performed. Duplex Doppler evaluation with spectral analysis was performed. The peak systolic velocity of the right common carotid artery is 48 cm/s. The peak systolic velocity of the right internal carotid artery is 42 cm/s and end diastolic velocity 15 cm/s. A minimal amount of plaque is present. The right external carotid artery is patent. The right vertebral artery is patent with antegrade flow. ICA/CCA ratio: 1.3 The peak systolic velocity of the left common carotid artery is 49 cm/s. The peak systolic velocity of the left internal carotid artery is 50 cm/s and end diastolic velocity 14 cm/s. A minimal amount of plaque is present. The left external carotid artery is patent. The left vertebral artery is patent with antegrade flow. ICA/CCA ratio: 1.0 IMPRESSION: Less than 50% bilateral carotid stenoses. Bilateral patent vertebral arteries with antegrade flow. Reviewed, Interpreted and Dictated by Ian Flores MD Transcribed by Gorge Long Authenticated by Ian Flores MD on 08/31/2021 10:12:40 AM [facility]
== END ==
PROVIDERS: PCP Internal Medicine Adolescent Medicine; Visit Provider Internal Medicine Adolescent Medicine
DX: R27.0 Ataxia, unspecified (principal); R47.02 Dysphasia
CPT/HCPCS: 70551; 93880

== ENCOUNTER → 2021-09-03 10:32 | Outpatient (CLI) | payer MEDICARE, SELFPAY | PROVIDERS: PCP Internal Medicine Adolescent Medicine; Visit Provider Internal Medicine Adolescent Medicine | DX: I70.213 Atherosclerosis of native arteries of extremities with intermittent claudication, bilateral legs (principal); Z86.73 Personal history of transient ischemic attack (TIA), and cerebral infarction without residual deficits; R06.09 Other forms of dyspnea | CPT/HCPCS: 93270 ==

== ENCOUNTER 2021-11-15 17:00 | Outpatient (RCR) | payer MEDICARE, SELFPAY ==
--- NOTE | 2021-10-18 09:10 | HMH.PTOPEV ---
PT Outpatient Evaluation Rehab PT Outpatient Evaluation Start: 10/18/21 08:07 Freq: Status: Active Protocol: Document 10/18/21 08:07 MÓNICA (Rec: 10/18/21 09:10 MÓNICA [id number]) Electronically Signed By Jh Kong PT 10/18/21 08:07 Outpatient Therapy Subjective History Subjective History This is the initial Physical Therapy vestibular eval for Jose Benitez. Pt is an 86 y/ o female referred to PT for c/ o balance issues. Pt reports ~4-5 years ago she had CVA w/ minimal affect and full recovery. Now pt states she had TIA/CVA ~ 4-5 weeks ago. Pt states when it happened she had L side face droop LUE paresthesia and disco- ordination. Pt reports she was outside on a hot day working in her granddaughter's yard doing yard work. Pt states she had feeling of her LUE not operating correctly . Pt feels she has full functional recovery but still feels her balance has been affected as she has fallen x2 in last few weeks. Chief Complaint Other Symptom Type Other Current Functional Limitations Housework,Recreation Activity, Stairs,Balance Balance Eval Chief Complaint vertigo No Did you feel dizzy, unsteady or faint? No Hx of Falls Hx Falls Yes Number in last 6 months 2 Gait/Posture Asssessment General Gait Observation No Deviations/Normal Assistive Devices None / NA Hip Observation in Gait Swing No Deviation Hip Observation in Gait Stance No Deviation Rhomberg Feet Together/Eyes open/Stable Surface pass Feet Together/Eyes Closed/Stable Surface pass Feet Together/Eyes open/Unstable Surface pass Feet Together/Eyes Closed/Unstable pass Surface MONTOYA Balance Evaluation Sitting to Standing Ability Independent w/out Hands Unsupported Stance Safely- 2 minutes Sitting Unsupported, Feet on Floor Safely- 2 minutes Standing to Sitting Ability Assist, Control w/Hands Unsupported Stance- Eyes Closed Supervision, 10 seconds Unsupported Stance- Eyes Open Independent, 1 minute Reaching Forward Standing Safely, 5 inches Pick- Up Object From Floor Independent/Safe Look Behind Shoulder -
== END 2021-11-15 17:05 | disposition home or self-care (01) ==
LOC: PT 17:00
PROVIDERS: PCP Internal Medicine Adolescent Medicine; Visit Provider Internal Medicine Adolescent Medicine
DX: I63.50 Cerebral infarction due to unspecified occlusion or stenosis of unspecified cerebral artery (principal); R27.0 Ataxia, unspecified
CPT/HCPCS: 97110; 97112; 97163; 97530

== ENCOUNTER → 2021-11-29 11:27 | Outpatient (CLI) | payer MEDICARE, SELFPAY | PROVIDERS: Visit Provider Urology | DX: N39.41 Urge incontinence (principal); B96.89 Other specified bacterial agents as the cause of diseases classified elsewhere; B96.29 Other Escherichia coli [E. coli] as the cause of diseases classified elsewhere | CPT/HCPCS: 87086; 87088; 87186 ==

== ENCOUNTER → 2021-12-20 06:00 | Outpatient (CLI) | payer MEDICARE, SELFPAY | PROVIDERS: PCP Internal Medicine Adolescent Medicine; Visit Provider Urology | DX: N39.0 Urinary tract infection, site not specified (principal); B96.29 Other Escherichia coli [E. coli] as the cause of diseases classified elsewhere | CPT/HCPCS: 87086; 87088; 87186 ==

== ENCOUNTER → 2022-02-22 08:56 | Outpatient (CLI) | payer MEDICARE, SELFPAY | PROVIDERS: PCP Internal Medicine Adolescent Medicine; Visit Provider Internal Medicine Adolescent Medicine | DX: R06.02 Shortness of breath (principal) | CPT/HCPCS: 94762 ==

== ENCOUNTER 2022-05-20 09:40 | Emergency (ER) | payer MEDICARE, SELFPAY ==
[2022-05-20] VITALS (14 sets, daily range): BP systolic 143–183; BP diastolic 82–108; PULSE 63–82; RESP 16–20; TEMP 36.7–36.9; O2SAT 94–98; BMI 24.0
--- NOTE | 2022-05-20 09:51 | XR_ITS ---
FINAL REPORT CLINICAL HISTORY: weakness, SOA COMPARISON: 07/02/2019 FINDINGS: A portable view of the chest was obtained. The heart size is normal. There is, left greater than right, basilar opacity which may represent atelectasis and/or pneumonia. There is a small left pleural effusion. There is no pneumothorax. IMPRESSION: Bilateral basilar opacity may represent atelectasis and/or pneumonia with a small left pleural effusion. Reviewed, Interpreted and Dictated by Anna Poole MD Transcribed by Mini Nelson Authenticated and [facility]
--- NOTE | 2022-05-20 09:52 | CT_ITS ---
FINAL REPORT TECHNIQUE: Thin section axial images were obtained from skull base to vertex without contrast. Coronal reconstruction images were obtained from the axial data. Exam was performed using dose reduction technique. CLINICAL HISTORY: weakness, h/o stroke// stroke protocol COMPARISON: MRI of the brain dated 08/31/2021 FINDINGS: There is age-appropriate atrophy. There is no mass effect or midline shift. There is no intracranial hemorrhage. There is no hydrocephalus. Periventricular low density is likely related to changes of chronic small vessel ischemia. There is an old infarct involving the left basal ganglia. The basilar cisterns are preserved. The posterior fossa is without acute abnormality. There is a small amount of fluid in the bilateral mastoid air cells. Soft tissues are otherwise without acute abnormality. No acute osseous abnormality is identified. IMPRESSION: No mass effect, midline shift, or hemorrhage. Atrophy and changes suggesting chronic small vessel ischemia. Bilateral mastoid effusions. Reviewed, Interpreted and Dictated by Anna Poole MD Transcribed by Mini Nelson Authenticated and [facility]
--- NOTE | 2022-05-20 09:52 | CT_ITS ---
FINAL REPORT TECHNIQUE: Thin section axial images were obtained through the neck after contrast administration per CT angiogram protocol. Multiplanar reconstruction images were obtained from the axial data. Exam was performed using dose reduction technique. CLINICAL HISTORY: . Weakness, possible stroke FINDINGS: CTA NECK: Aortic arch: There is a normal three-vessel configuration to the aortic arch. There is no significant stenosis of the great vessels at their origins. Right carotid artery: The right common carotid artery is patent without stenosis. There is calcification at the carotid bulb with less than 50% stenosis. Remaining portions of the right internal carotid are patent to the skull base. Left carotid artery: The left common carotid artery is patent without stenosis. There is calcification of the bulb without significant stenosis. Remainder of the left internal carotid artery is patent. Vertebral arteries: The vertebral arteries are patent. Other soft tissues: There is mediastinal lymphadenopathy. AP window lymph node measures 19 mm. There is no mass or lymphadenopathy in the neck. IMPRESSION: Calcification at the carotid bulbs with less than 50% stenosis bilaterally. Reviewed, Interpreted and Dictated by Anna Poole MD Transcribed by Jennifer Morales Authenticated and . [facility]
--- NOTE | 2022-05-20 09:52 | CT_ITS ---
FINAL REPORT TECHNIQUE: Thin section axial images were obtained through the neck and head after contrast administration per CT angiogram protocol. Multiplanar reconstruction images were obtained from the axial data. Exam was performed using dose reduction technique. CLINICAL HISTORY: weakness, h/o stroke FINDINGS: CTA NECK: Aortic arch: There is a normal three-vessel configuration to the aortic arch. There is no significant stenosis of the great vessels at their origins. Right carotid artery: The right common carotid artery is patent without stenosis. There is calcification at the carotid bulb with less than 50% stenosis. Remaining portions of the right internal carotid are patent to the skull base. Left carotid artery: The left common carotid artery is patent without stenosis. There is calcification of the bulb without significant stenosis. Remainder of the left internal carotid artery is patent. Vertebral arteries: The vertebral arteries are patent. Other soft tissues: There is mediastinal lymphadenopathy. AP window lymph node measures 19 mm. There is no mass or lymphadenopathy in the neck. CTA HEAD: The intracerebral portions of the carotid arteries are patent. The anterior and middle cerebral arteries are patent. The basilar artery is patent. The left vertebral artery is dominant. The posterior cerebral arteries arise from the basilar artery. There is no significant stenosis, aneurysm, or AVM. IMPRESSION: CTA NECK: Calcification of the carotid bulbs bilaterally without significant stenosis. CTA HEAD: No evidence of large vessel occlusion. No significant stenosis. Reviewed, Interpreted and Dictated by Anna Poole MD Transcribed by Jennifer Morales Authenticated and [facility]
[2022-05-20 09:57] LABS: POC Glucose,Bedside 146 (70-110)
--- NOTE | 2022-05-20 09:57 | PC.NURSE ---
RADIOLOGY AWARE OF CT HEAD.
--- NOTE | 2022-05-20 09:58 | PC.NURSE ---
PT TRANSPORTED TO RADIOLOGY VIA STRETCHER.
--- NOTE | 2022-05-20 09:59 | PC.NURSE ---
called RT for vbg
--- NOTE | 2022-05-20 09:59 | PC.NURSE ---
fsbs 141.
--- NOTE | 2022-05-20 09:59 | PC.NURSE ---
pt to CT at this time
[2022-05-20 10:11] LABS: Basophils # 0.1 K/mm3 (0-0.2); Basophils % 1.1 % (0.1-2.0); Eosinophils # 0.3 K/mm3 (0.0-0.4); Hematocrit 42.8 % (37.0-47.0); Hemoglobin 14.4 g/dL (12.2-16.2); Lymphocytes # 3.1 K/mm3 (0.7-4.5); Mean Corpuscular HGB Conc 33.7 g/dL (31.8-35.4); Mean Corpuscular Hemoglobin 32.7 pg (27.0-31.2); Mean Corpuscular Volume 97.2 fl (81-99); Mean Platelet Volume 7.7 fl (7.4-10.4); Monocytes # 0.5 K/mm3 (0.1-1.0); Monocytes % 5.7 % (1.7-9.3); Neutrophils % 50.2 % (37.0-80.0); Platelet Count 361 K/mm3 (142-424); Red Cell Distribution Width 12.8 % (11.5-17.5)
--- NOTE | 2022-05-20 10:13 | HMH.EDGENADL ---
Discharge Plan Disposition Patient Disposition: Home, Self-Care Condition: Good Prescriptions Prescriptions: New nitrofurantoin monohyd/m-cryst [Macrobid] 100 mg capsule 100 mg PO BID 5 Days Qty: 10 0RF Rx Instructions: must administer with a meal/food ondansetron 4 mg tablet,disintegrating 4 mg PO Q8H PRN (Reason: nausea and vomiting) 4 Days Qty: 12 0RF No Action mirabegron 25 mg tablet extended release 24 hr 25 mg PO DAILY omeprazole 40 mg capsule,delayed release(DR/EC) 40 mg PO DAILY Qty: 30 5RF fesoterodine [Toviaz] 4 mg tablet extended release 24 hr 4 mg PO DAILY aspirin [Adult Low Dose Aspirin] 81 mg tablet,delayed release (DR/EC) 81 mg PO DAILY rosuvastatin 5 MG tablet 5 mg PO DAILY Referrals Follow up/Referrals: Skinny Mackay MD [Primary Care Provider] - See instructions Activity Restrictions/Add. Instructions Additional Instructions/Restrictions: You were evaluated in the emergency department today. You were diagnosed with a urinary tract infection. Please make sure that she stay orally hydrated at home. 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 We also sent in Zofran for you to have as needed for nausea and vomiting. Please follow-up with your primary care provider over the next 48 hours. Let them know that you were evaluated here. Return to the emergency department for any new or worsening symptoms. Clinical Impressions Clinical Impression: Acute UTI, Light-headedness Instructions Patient Instructions: DI for Urinary Tract Infection (UTI), DI for Dizziness-Nonvertigo Discharge ED Provider: Mary Soto General Adult HPI General Chief complaint: Weakness Stated complaint: can't walk, suspected stroke Time Seen by Provider: 05/20/22 09:45 Mode of Arrival: Wheelchair Source of Information: Patient Limitations: No Limitations Description of Symptoms (Recalled from ER Triage Doc. by RN): pt to ed c/o dizziness and weakness. pt states she ate breakfast and was getting up to shower and get ready for the day when she became weak and dizzy. pt states approx 0845. pt denies dickens, cp, soa or pain. pt reports a pmx of stroke. pt states she did have one episode of emesis this morning. History of Present Illness HPI narrative: This patient is an 86-year-old female with a history of prior stroke presenting to the emergency department for evaluation with concern for generalized weakness. Patient reports that she has a history of stroke in the past, and she has no residual deficits and is not on any medications. She states that she was feeling fine this morning and ate breakfast without issues. Around 8:45 AM, she was working on getting dressed and became acutely weak and lightheaded. She denies any true dizziness/vertigo, headache, vision changes, unilateral weakness, numbness, tingling, or other concerns. She states that she feels so weak that she is no longer able to stand. She also is experiencing nausea. She states that she had an episode of emesis approximately 15 minutes prior to arrival. Nothing seems to make her symptoms better or worse. She denies any chest pain, shortness of breath, abdominal pain, changes in bowel movements, rashes, or swelling. She states that the only other issue that she has had as of late is right-sided jaw pain for a few days, and she was planning to see a dentist for this but has not yet. Related Data Home Medications Medication Instructions Recorded Confirmed aspirin 81 mg tablet,delayed 81 mg PO DAILY Heartburn 12/30/19 02/26/22 release (Adult Low Dose Aspirin) mirabegron 25 mg tablet,extended 25 mg PO DAILY URINARY TRACT 09/18/20 02/26/22 release 24 hr rosuvastatin 5 mg tablet 5 mg PO DAILY Cholesterol 09/18/20 02/26/22 fesoterodine 4 mg tablet,extended 4 mg PO DAILY 11/01/21 02/26/22 release 24 hr (Toviaz) Previous Rx's Medication Instructions Recor
[2022-05-20 10:14] LABS: VBG Base Excess 2.2 mmol/L (-2.4-2.3); VBG Oxygen Saturation 77.7 % (50-70); VBG PCO2 44.9 mmol/L (35-51); VBG PO2 40.3 mmol/L (28-40); VBG Total CO2 28.4 mmol/L (23-27)
[2022-05-20 10:17] LABS: Chloride 106 mmol/L (98-107); Potassium 4.2 mmoL/L (3.5-5.1); Sodium 141 mmol/L (136-145)
[2022-05-20 10:20] LABS: Alanine Aminotransferase 18 U/L (12-78); Albumin Level 3.9 g/dl (3.5-5.0); Albumin/Globulin Ratio 1.1 (1.1-1.8); Alkaline Phosphatase 126 U/L (38-126); Anion Gap 8.2 mEq/L (5-15); Aspartate Amino Transferase 32 U/L (14-36); Blood Urea Nitrogen 14 mg/dl (7-17); Calcium 8.6 mg/dl (8.4-10.2); Carbon Dioxide 31 mmol/L (22.0-30.0); Creatinine Clearance Estimated 42 mL/min (50-200); Estimated Glomerular Filt Rate 80 ml/min (>60); GFR (African American) 96 ML/MIN (>60); Globulin 3.6 g/dL (1.3-3.2); Glucose 160 mg/dl (74-100); Lipase 58 U/L (23-300); Total Protein,Serum 7.5 g/dl (6.3-8.2)
[2022-05-20 10:21] LABS: Magnesium 1.9 mg/dl (1.6-2.3)
[2022-05-20 10:34] LABS: Troponin I < 0.01 ng/ml (0.00-0.034)
[2022-05-20 10:49] LABS: Coronavirus 19, PCR Not Detected (NotDetected); Influenza A, PCR Not Detected (NotDetected); Influenza B, PCR Not Detected (NotDetected)
[2022-05-20 10:51] LABS: Thyroid Stimulating Hormone 4.45 uIU/mL (0.465-4.68)
[2022-05-20 11:13] LABS: Free T4 (Free Thyroxine) 0.94 ng/dl (0.78-2.19)
--- NOTE | 2022-05-20 11:14 | PC.NURSE ---
patient given another warm blanket and has no other needs at this time. family at BS. call light within reach
--- NOTE | 2022-05-20 11:25 | PC.NURSE ---
Walked with patient to restroom, no complications
--- NOTE | 2022-05-20 11:45 | ECG_ITS ---
APPROVED REPORT Exam: Resting ECG HR:68 bpm ECG Measurements Heart Rate 68 AXES VT 210 P 71 QRSd 94 QRS -43 QT 422 T 20 QTc 439 Conclusion SINUS RHYTHM WITH FIRST DEGREE AV BLOCK LEFT AXIS DEVIATION Late R wave progression, previously noted ABNORMAL ECG UNCONFIRMED REPORT Electronically signed by : Skinny Mackay MD 05/21/2022 13:34:22
[2022-05-20 12:07] LABS: Microscopic, Urine URINE MICROSCOPIC (MICROSCOPIC)
[2022-05-20 12:09] LABS: Appearance,Urine SL CLOUDY (Clear); Bilirubin,Urine Negative (Negative); Blood, Urine Negative (Negative); Color,Urine YELLOW (Yellow); Glucose,Urine (UA) Negative (Negative); Ketones,Urine Negative (Negative); Leukocyte Esterase,Urine 2+ (Negative); Nitrate,Urine POSITIVE (Negative); PH,Urine 7.5 (5.0-8.5); Protein,Urine Negative (Negative); Urobilinogen,Urine 0.2 EU/dl (0.2)
[2022-05-20 12:44] LABS: Bacteria,Urine 1+ /lpf; Squamous Epithelial Cell,Urine Occasional #/hpf (0-5)
[2022-05-20 13:27] LABS: Troponin I < 0.01 ng/ml (0.00-0.034)
--- NOTE | 2022-05-20 19:48 | ECG_ITS ---
APPROVED REPORT Exam: Resting ECG HR:64 bpm ECG Measurements Heart Rate 64 AXES LA 186 P -27 QRSd 90 QRS -40 QT 422 T 18 QTc 432 Conclusion SINUS RHYTHM LEFT AXIS DEVIATION [QRS AXIS < -30] Previously noted poor R wave progression. Otherwise normal EKG UNCONFIRMED REPORT Electronically signed by : Skinny Mackay MD 05/20/2022 20:13:04
== END 2022-05-20 14:35 | disposition home or self-care (01) ==
PROVIDERS: Emergency Provider Emergency Medicine; PCP Internal Medicine Adolescent Medicine
DX: N39.0 Urinary tract infection, site not specified (principal); I10 Essential (primary) hypertension
CPT/HCPCS: 36415; 70450; 70496; 70498; 71045; 80053; 81001; 82803; 82962; 83690; 83735; 84439; 84443; 84484; 85025; 87086; 87088; 87186; 93005; C9803; J0696; J2405; Q9967; U0003; U0005

== ENCOUNTER 2022-05-21 08:39 | Inpatient (IN) | payer MEDICARE, SELFPAY ==
[2022-05-21] VITALS (10 sets, daily range): BP systolic 150–198; BP diastolic 82–100; PULSE 65–82; RESP 17–22; TEMP 36.4–36.8; O2SAT 94–99; BMI 23.6; BMI 24.2
--- NOTE | 2022-05-21 08:51 | HMH.EDGENADL ---
Discharge Plan Disposition Patient Disposition: Admitted as Observation Condition: Fair Clinical Impressions Clinical Impression: Gait instability, Acute UTI Discharge ED Provider: Enrique Corrales General Adult HPI General Chief complaint: Nausea/Vomiting/Diarrhea Stated complaint: vomiting Time Seen by Provider: 05/21/22 08:51 History of Present Illness HPI narrative: Patient is an 86-year-old female with past medical history of recent diagnosis of urinary tract infection, TIA, hypertension who presents with concern for vomiting. Patient was evaluated in the ER yesterday with with concerns for substantial amount of vomiting and had a stroke work-up as well. Ultimately diagnosed with a urinary tract infection. He said that they went home last night and tried to continue to orally rehydrate but she was still quite nauseous. She denies any abdominal pain. No recent surgeries on her abdomen. She says that she tried to eat some this morning and was unable to so they wanted to come in for evaluation. Denies any fever or chills. Denies any chest pain. Related Data Home Medications Medication Instructions Recorded Confirmed aspirin 81 mg tablet,delayed 81 mg PO DAILY HEART HEALTH 12/30/19 05/21/22 release (Adult Low Dose Aspirin) mirabegron 25 mg tablet,extended 25 mg PO DAILY URINARY TRACT 09/18/20 05/21/22 release 24 hr rosuvastatin 5 mg tablet 5 mg PO DAILY Cholesterol 09/18/20 05/21/22 fesoterodine 4 mg tablet,extended 4 mg PO DAILY BLADDER 11/01/21 05/21/22 release 24 hr (Toviaz) fluticasone propionate 50 1 spray intranasal BID Allergy 05/21/22 05/21/22 mcg/actuation nasal symptoms spray,suspension nitrofurantoin 100 mg PO BID Infection 05/21/22 05/21/22 monohydrate/macrocrystals 100 mg capsule (Macrobid) omeprazole 40 mg capsule,delayed 40 mg PO DAILY Reflux/Acid reflux 05/21/22 05/21/22 release Previous Rx's Medication Instructions Recorded ondansetron 4 mg disintegrating 4 mg PO Q8H PRN nausea and 05/20/22 tablet vomiting 4 days #12 tabs Allergies Allergy/AdvReac Type Severity Reaction Status Date / Time ANTIBIOTIC STARTED WITH A C Allergy Unknown Uncoded 02/26/22 11:25 [facility] Disclaimer: The information contained in this section may have been updated after the patient was seen, as this information can be updated by other users. Medical History Bilateral serous otitis media History of hypertension Impacted cerumen of right ear Pulmonary fibrosis Right serous otitis media Stroke Family History Mother Diabetes Stroke Father Diabetes Stroke Social History Smoking Status: Never smoker second hand exposure: No alcohol intake: current substance use type: denies use current occupational status: retired Travel in the last 8 weeks: None household members: none housing: house current occupational exposures/hazards: No caffeine: Yes ROS Obtained: Yes All systems reviewed & no additional complaints except as documented A 14 point review of system was obtained and otherwise negative except per HPI Physical Exam General General appearance: alert and in no apparent distress Head Head exam: atraumatic, normocephalic and normal inspection Eye Eye exam: Present normal appearance, PERRL and EOMI ENT ENT exam: Present normal exam, normal oropharynx, mucous membranes dry and normal external ear exam Neck Neck exam: Present normal inspection, full ROM and trachea midline; Absent meningismus or lymphadenopathy Chest Chest inspection: Present normal inspection and symmetric chest wall rise; Absent tenderness Respiratory Respiratory exam: Present normal lung sounds bilaterally; Absent respiratory distress Cardiovascular Cardiovascular exam: Present regular rate and normal rhythm Abdomina
--- NOTE | 2022-05-21 08:52 | PC.NURSE ---
0273 DR PAGAN AT BEDSIDE FOR EVALUATION
[2022-05-21 09:15] LABS: Basophils # 0.1 K/mm3 (0-0.2); Basophils % 0.7 % (0.1-2.0); Chloride 103 mmol/L (98-107); Eosinophils # 0.1 K/mm3 (0.0-0.4); Hematocrit 44.8 % (37.0-47.0); Hemoglobin 15.1 g/dL (12.2-16.2); Lymphocytes # 1.8 K/mm3 (0.7-4.5); Lymphocytes % 19.8 % (10-50); Mean Corpuscular HGB Conc 33.6 g/dL (31.8-35.4); Mean Corpuscular Hemoglobin 32.9 pg (27.0-31.2); Mean Corpuscular Volume 98.1 fl (81-99); Mean Platelet Volume 7.7 fl (7.4-10.4); Monocytes # 0.2 K/mm3 (0.1-1.0); Monocytes % 2.3 % (1.7-9.3); Neutrophils % 76.2 % (37.0-80.0); Platelet Count 355 K/mm3 (142-424); Red Blood Count 4.57 M/mm3 (4.20-5.40); Red Cell Distribution Width 12.8 % (11.5-17.5); Sodium 142 mmol/L (136-145); White Blood Count 9.1 K/mm3 (4.8-10.8)
[2022-05-21 09:16] LABS: Potassium 4.3 mmoL/L (3.5-5.1)
[2022-05-21 09:18] LABS: Alanine Aminotransferase 23 U/L (12-78); Albumin Level 4.3 g/dl (3.5-5.0); Albumin/Globulin Ratio 1.1 (1.1-1.8); Alkaline Phosphatase 115 U/L (38-126); Anion Gap 10.3 mEq/L (5-15); Aspartate Amino Transferase 34 U/L (14-36); Bilirubin,Total 0.8 mg/dl (0.2-1.3); Blood Urea Nitrogen 14 mg/dl (7-17); Calcium 9.1 mg/dl (8.4-10.2); Carbon Dioxide 33 mmol/L (22.0-30.0); Creatinine Clearance Estimated 41 mL/min (50-200); Estimated Glomerular Filt Rate 95 ml/min (>60); GFR (African American) 115 ML/MIN (>60); Globulin 3.9 g/dL (1.3-3.2); Glucose 195 mg/dl (74-100); Magnesium 1.9 mg/dl (1.6-2.3); Total Protein,Serum 8.2 g/dl (6.3-8.2)
--- NOTE | 2022-05-21 09:36 | PC.NURSE ---
PT PROVIDED WARM BLANKET, FAMILY AT BEDSIDE. NO NEEDS AT THIS TIME
--- NOTE | 2022-05-21 10:06 | PC.NURSE ---
Pt ambulatory back to ED room 10 from restroom with assistance x 2. No complications. pt hooked back up to monitor
--- NOTE | 2022-05-21 10:50 | PC.NURSE ---
ROUNDED ON PT, PT DENIES NAUSEA. FAMILY AT BEDSIDE
--- NOTE | 2022-05-21 11:05 | PC.NURSE ---
1105 AMBULATED WITH PT, PT VERY UNSTEADY
--- NOTE | 2022-05-21 11:09 | PC.NURSE ---
DR. SHERON CHAIDEZ
--- NOTE | 2022-05-21 11:12 | PC.NURSE ---
DR PAGAN SPEAKING WITH DR. HOLBROOK
--- NOTE | 2022-05-21 11:15 | PC.NURSE ---
AT BEDSIDE TO DISCUSS POC/ADMISSION WITH PT AND FAMILY
[2022-05-21 11:28] LABS: Coronavirus 19, PCR Not Detected (NotDetected); Influenza A, PCR Not Detected (NotDetected); Influenza B, PCR Not Detected (NotDetected)
--- NOTE | 2022-05-21 11:36 | PC.NURSE ---
CARE MANAGEMENT NOTIFIED OF ADMISSION
--- NOTE | 2022-05-21 12:07 | PC.NURSE ---
REPORT GIVEN TO Linda BRODERICK RN
--- NOTE | 2022-05-21 12:10 | PC.NURSE ---
PT AND FAMILY UPDATED AT THIS TIME
--- NOTE | 2022-05-21 12:19 | PC.NURSE ---
Pt arrived to the floor at this time
--- NOTE | 2022-05-21 13:25 | HMH.PHAINT1 ---
Pharmacy Intervention Comments: MEDICATION RECONCILIATION COMPLETED ON PATIENT USING EXTERNAL FILL HISTORY FROM PHARMACY AND LIST FROM PCP OFFICE. WENT IN PATIENT'S ROOM TO CLARIFY SOME OF HER HOME MEDICATIONS AND SHE STATES THAT SHE CURRENTLY DOES NOT TAKE ANY MEDICATIONS REGULARLY AT HOME AND HAS NOT TAKEN ANYTHING FOR SOME TIME. -ALMA DELIA COX, ADRIAND
[2022-05-22 04:00] VITALS: BP 154/71; PULSE 62; RESP 18; TEMP 36.8; O2SAT 98; BMI 24.7
--- NOTE | 2022-05-22 04:29 | PC.NURSE ---
pt is alert and oriented x4, pt noted with unsteady gait and provided walker for assistance, pt requires assist x1 to bathroom, pt voiding without difficulty, skin pwd with red cheeks in which pt reports rosacea, pt with crackles noted in bases of lungs, 1+ pitting edema noted to ble, pt with vomiting x1 noted and complained of nausea, dr lui was notified and telephone order was received for zofran 4mg iv x1 dose repeated and verified, no acute distress noted.
[2022-05-22 06:51] LABS: Basophils # 0.1 K/mm3 (0-0.2); Basophils % 0.6 % (0.1-2.0); Eosinophils # 0.1 K/mm3 (0.0-0.4); Eosinophils % 1.1 % (0.1-12.0); Lymphocytes % 24.2 % (10-50); Mean Corpuscular HGB Conc 32.7 g/dL (31.8-35.4); Mean Corpuscular Hemoglobin 32.2 pg (27.0-31.2); Mean Corpuscular Volume 98.7 fl (81-99); Mean Platelet Volume 7.8 fl (7.4-10.4); Monocytes # 0.4 K/mm3 (0.1-1.0); Monocytes % 3.5 % (1.7-9.3); Neutrophils # 8.7 K/mm3 (1.8-7.8); Neutrophils % 70.6 % (37.0-80.0); Platelet Count 326 K/mm3 (142-424); Red Blood Count 3.95 M/mm3 (4.20-5.40); Red Cell Distribution Width 12.7 % (11.5-17.5); White Blood Count 12.3 K/mm3 (4.8-10.8)
[2022-05-22 06:58] LABS: Blood Urea Nitrogen 9 mg/dl (7-17); Calcium 8.1 mg/dl (8.4-10.2); Carbon Dioxide 31 mmol/L (22.0-30.0); Chloride 103 mmol/L (98-107); Creatinine Clearance Estimated 43 mL/min (50-200); Estimated Glomerular Filt Rate 118 ml/min (>60); GFR (African American) 142 ML/MIN (>60); Glucose 137 mg/dl (74-100); Sodium 137 mmol/L (136-145)
[2022-05-22 06:59] LABS: Anion Gap 6.5 mEq/L (5-15); Potassium 3.5 mmoL/L (3.5-5.1)
[2022-05-22 07:09] LABS: Hemoglobin 12.7 g/dL (12.2-16.2)
[2022-05-22 07:47] VITALS: BP 168/76; PULSE 53; RESP 19; TEMP 36.7; O2SAT 92
--- NOTE | 2022-05-22 08:38 | EXP.HP ---
History of Present Illness *Admission Date: 05/21/22 *Reason for visit:: Weakness/inability to ambulate *History of present illness: 86-year-old white female who is enjoyed remarkably good health over her decades of life, who came to the emergency department on the with a chief complaint of chills and weakness. Was found to have urinary tract infection, discharged on antibiotics. She came back to the ER on the with weakness, inability to ambulate and was evaluated in the ER again. CT of head and CTA of neck and head had been done on the which showed no acute changes, her labs revealed no significant electrolyte abnormalities and her culture was growing E. coli, pansensitive. However because of her weakness it was felt she might have some mild dehydration and she was admitted overnight for observation for fluids and IV antibiotics. On rounds today she notes that her chief complaint is that she cannot walk. She is really unable to give more details of this but states that she has not been able to walk for 3 to 4 days. [facility] Disclaimer: The information contained in this section may have been updated after the patient was seen, as this information can be updated by other users. Medical History Bilateral serous otitis media History of hypertension Impacted cerumen of right ear Pulmonary fibrosis Right serous otitis media Stroke Surgical History (Updated 05/21/22 @ 12:30 by Ana Pedro RN) H/O: hysterectomy History of tubal ligation Family History Mother Diabetes Stroke Father Diabetes Stroke Social History (Updated 05/21/22 @ 12:31 by Ana Pedro RN) Smoking Status: Never smoker second hand exposure: No alcohol intake: current substance use type: denies use current occupational status: retired Travel in the last 8 weeks: None household members: none housing: house current occupational exposures/hazards: No caffeine: Yes Review of Systems Review of Systems Review of systems:: pertinent systems reviewed and negative unless documented below Meds Home Medications and Allergies Home Medications Medication Instructions Recorded Confirmed Type No Known Home Medications 05/21/22 05/21/22 History New Prescriptions to Start Prescriptions: Allergies Allergy/AdvReac Type Severity Reaction Status Date / Time No Known Allergies Allergy Unverified 05/21/22 12:35 Exam Data for Last 24 hours Vital signs and Labs for Last 24 Hours: Temp Pulse Resp BP Pulse Ox 98.0 F 53 L 19 168/76 H 92 L 05/22/22 07:47 05/22/22 07:47 05/22/22 07:47 05/22/22 07:47 05/22/22 07:47 Laboratory Results - last 24 hr 05/21/22 09:00: WBC 9.1, RBC 4.57, Hgb 15.1, Hct 44.8, MCV 98.1, MCH 32.9 H, MCHC 33.6, RDW 12.8, Plt Count 355, MPV 7.7, Neut % (Auto) 76.2, Lymph % (Auto) 19.8, Washburn % (Auto) 2.3, Eos % (Auto) 1.0, Baso % (Auto) 0.7, Neut # (Auto) 7.0, Lymph # (Auto) 1.8, Washburn # (Auto) 0.2, Eos # (Auto) 0.1, Baso # (Auto) 0.1 05/21/22 09:00: Sodium 142, Potassium 4.3, Chloride 103, Carbon Dioxide 33 H, Anion Gap 10.3, BUN 14, Creatinine 0.60, Estimated Creat Clear 41, Estimated GFR 95, Est GFR ( Amer) 115, Glucose 195 H D, Calcium 9.1, Magnesium 1.9, Total Bilirubin 0.8, AST 34, ALT 23 D, Alkaline Phosphatase 115, Total Protein 8.2, Albumin 4.3 D, Globulin 3.9 H, Albumin/Globulin Ratio 1.1 05/21/22 11:20: SARS-CoV-2 (PCR) Not detected, Influenza A Untype (PCR) Not detected, Influenza Type B (PCR) Not detected 05/22/22 06:13: WBC 12.3 H D, RBC 3.95 L, Hgb 12.7 D, Hct 39.0, MCV 98.7, MCH 32.2 H, MCHC 32.7, RDW 12.7, Plt Count 326, MPV 7.8, Neut % (Auto) 70.6, Lymph % (Auto) 24.2, Washburn % (Auto) 3.5, Eos % (Auto) 1.1, Baso % (Auto) 0.6, Neut # (Auto) 8.7 H, Lymph # (Auto) 3.0, Washburn # (Auto) 0.4, Eos # (Auto) 0.1, Baso # (Auto) 0.1 05/22/22 06:13: Sodium 137, P
--- NOTE | 2022-05-22 09:07 | MR_ITS ---
FINAL REPORT TECHNIQUE: Multiplanar MR without contrast CLINICAL HISTORY: ATAXIA, unable to walk or use legs like normal x2 days. r/o stroke FINDINGS: Diffusion sequences show restricted diffusion in the right cerebellar hemisphere consistent with an acute infarct. Mild edema is noted without hemorrhage. There are scattered chronic lacunar infarcts in the bilateral basal ganglia, left external capsule, central glynn, and right cerebellum. Scattered periventricular white matter signal changes are seen compatible with moderate chronic ischemic gliotic disease. Moderate generalized atrophy is present. Ventricles are normal. Major vascular flow voids are intact. IMPRESSION: Acute infarct in the right cerebellar hemisphere without hemorrhage accounting for symptoms. Extensive chronic lacunar infarcts and chronic microvascular ischemia. Reviewed, Interpreted and Dictated by Celestina Alatorre MD Transcribed by Gillian Corrales Authenticated and [facility]
--- NOTE | 2022-05-22 09:38 | HMH.OTEV ---
OT Inpatient Evaluation Rehab OT IP Evaluation Start: 05/21/22 17:15 Freq: ONCE Status: Active Protocol: Document 05/22/22 09:30 CAITLINSHIVANI (Rec: 05/22/22 09:38 HUGOYAEL [id number]) Rehab OT IP Assessment Subjective History 86-year-old white female who is enjoyed remarkably good health over her decades of life, who came to the emergency department on the with a chief complaint of chills and weakness. Was found to have urinary tract infection, discharged on antibiotics. She came back to the ER on the with weakness, inability to ambulate and was evaluated in the ER again. CT of head and CTA of neck and head had been done on the which showed no acute changes, her labs revealed no significant electrolyte abnormalities and her culture was growing E. coli, pansensitive. However because of her weakness it was felt she might have some mild dehydration and she was admitted overnight for observation for fluids and IV antibiotics. On rounds today she notes that her chief complaint is that she cannot walk. She is really unable to give more details of this but states that she has not been able to walk for 3 to 4 days. Patient lives in [address] [place] with no ANA. Patient lives with and has family close by. Patient was independent with ADLs and fx'l mobility tasks prior to hospitalization. Patient verbalize, I was fine until Friday. Subjective I can get up. Instructed Patient on proper hand and foot placement to complete supine->sit @ EOB
--- NOTE | 2022-05-22 09:58 | HMH.PTEV ---
Physical Therapy Evaluation Rehab PT IP Evaluation Start: 05/21/22 17:14 Freq: .once Status: Active Protocol: Document 05/22/22 09:50 PHORANTONIO (Rec: 05/22/22 09:57 PHORNE [id number]) Subjective/History History History [address] [facility] with UTI. She reports feeling generally weak and off balance for several days. She reports she lives with , 2-3 steps to enter the home, and she is generally independent with all mobility. Subjective Subjective Pt continues to c/o feeling off balance this am, but no specific c/o. Rehab PT IP Eval Objective Appearance Patient Behavior Appropriate Patient Orientation Person,Place,Time Difficulty following instructions none Speech Pattern Clear Ambulation Patient Able to Ambulate Yes Ambulation Observation IP General Gait Pattern Observation Shuffling Step Ambulation Distance (feet) 20 Ambulation Assistive Device Rolling Walker Ambulation Ability Contact Guard/Hand Hold Balance Ability to Arise Able, uses arms to help Sitting Balance Steady, safe Standing Balance Unsteady Dynamic Sitting Balance Ability Good Dynamic Standing Balance Ability Poor Transfers Bed Transfer Ability Contact Guard/Hand Hold Chair Transfer Ability Contact Guard/Hand Hold Sit to Stand Bed Transfer Ability Contact Guard/Hand Hold Sit to Stand Chair Transfer Ability Contact Guard/Hand Hold Rehab PT IP prob,goals,plan Problems Date of Evaluation: 05/22/22 PT IP Problems Bed Mobility,Transfers,Gait, Balance Rehab Potential Rehab Potential Good Plan PT Intervention Plan Bed Mobility,Transfers,Gait, Balance,Therapeutic Exercise PT Plan Frequency Daily Duration LOS Discharge Goals Bed Transfer Ability Supervision/Stand by Sit to Stand Chair Transfer Ability Supervision/Stand by Ambulation Assistive Device Rolling Walker Ambulation Distance (feet) 30 Discharge Plan PT Discharge Plan Pt is currently most appropriate for rehab placement once medcially stable due to insatbility of gait. However, if she has 24 hr assist available at home she may be able to return home
--- NOTE | 2022-05-22 11:37 | SW/DCPLANNER ---
Addendum entered by [facility] 05/23/22 13:30: Per Tanya Mo this patient has been approved for admission today to [facility]. I have updated patient/family and nursing staff (Ana Li). Addendum entered by [facility] 05/23/22 09:34: Per Tanya Mo insurance approval is still pending at this time. Addendum entered by [facility] 05/22/22 14:58: Shima Mo stated that has approved patient for admission and insurance is pending at this time. Shima will continue to follow up with me regarding insurance approval. Shima has spoke with patients family. Addendum entered by [facility] 05/22/22 13:09: Shima Mo has called stating that she is currently reviewing referral at this time. Original Note: I spoke with this patient regarding plans once medically stable for discharge. Patient stated that she resides at home and family is present 18/11. Patient initially was only open to returning home with home health services but after a lengthy discussion patient is agreeable for information to be faxed to [facility]. I will follow up with Tanya at [facility] once she reviews information. Discharge date is unknown at this time.
--- NOTE | 2022-05-22 14:26 | PC.NURSE ---
PT IS SITTING UP IN THE CHAIR. ALERT AND ORIENTED X4. PT CONTINUES TO HAVE AN UNSTEADY GAIT. 1 ASSIST TO GET TO THE BATHROOM. PT TOLERATED A SHOWER THIS SHIFT HOWEVER DID NEED SOME ASSISTANCE. EATING AND DRINKING WELL. NO NAUSEA/VOMITING. LUNG SOUNDS DIMINISHED WITH BILATERAL FINE CRACKLES. ABDOMEN SOFT/NON TENDER WITH ACTIVE BOWEL SOUNDS. WILL CONTINUE TO MONITOR.
[2022-05-22 15:17] VITALS: BP 166/84; PULSE 70; RESP 18; TEMP 36.7; O2SAT 95
--- NOTE | 2022-05-22 15:52 | HMH.SLAPHASI ---
Speech & Language Evaluation Speech/Language Aphasia Evaluation Start: 05/22/22 15:08 Freq: once Status: Complete Protocol: Document 05/22/22 15:13 YRIS (Rec: 05/22/22 15:52 [email or web address] [id number]) Aphasia Assessment/Goals/Plan Assessment Date of Evaluation: 05/22/22 Evaluation Type Initial Certification Assessment/Problems Pt assessed at the bedside for an aphasia evaluation and CSE per MD order following CVA. Does Patient Qualify for Service No Qualify/Failure Comment Based on assessment results and clinical observation, skilled speech therapy services are not warranted at this time. Plan Pt/Guardian verbally ack understanding Yes of dx/prognosis/goals G -code Required No Education Instructions provided Discussed assessment results with patient, nursing, and care management all of which expressed understanding. Pt/Caregiver Able to Recall Information Able to recall/restate Reinforcement needed No Speech & Language HPI History Present Illness Description of Patient Problem Patient is an 86-year-old female with past medical history of recent diagnosis of urinary tract infection, TIA, hypertension who presents with concern for vomiting. Patient was evaluated in the ER with with concerns for substantial amount of vomiting and had a stroke work-up. MRI shown characteristics similiar to CVA. Pt/Caregiver Concerns Pt reported no concerns during interview Rehab Services Assessed Speech therapy Is this evaluation r/t stroke? Yes Aphasia Evaluations Communication Speech Intelligibility Pt was assessed at the bedside with a variety of tasks. She was A&O X4. She was able to complete immediate and delayed recall tasks, divergent and convergent naming tasks, naming objects and object functions, following 2 step directions, same vs different with items around room, categorizing, and automatic
[2022-05-22 19:42] VITALS: O2SAT 93
[2022-05-23 03:57] VITALS: BP 142/84; PULSE 85; RESP 22; TEMP 36.9; O2SAT 94; BMI 24.0
--- NOTE | 2022-05-23 06:21 | PC.NURSE ---
PATIENT DENIES PAIN. GAIT IS ALITTLE UNSTEADY. WALKS TO THE BR WITH HER WALKER AND SBA. SHE IS A/O X 4. PLEASANT AND COOPERATIVE..SPEECH CLEAR AND APPROPRIATE.
[2022-05-23 07:38] VITALS: BP 142/81; PULSE 66; RESP 18; TEMP 36.9; O2SAT 97
--- NOTE | 2022-05-23 07:46 | EXP.DC.SUM ---
General Admission date:: 05/21/22 Discharge date: 05/23/22 HPI HPI HPI: 86-year-old white female who is enjoyed remarkably good health over her decades of life, who came to the emergency department on the with a chief complaint of chills and weakness. Was found to have urinary tract infection, discharged on antibiotics. She came back to the ER on the with weakness, inability to ambulate and was evaluated in the ER again. CT of head and CTA of neck and head had been done on the which showed no acute changes, her labs revealed no significant electrolyte abnormalities and her culture was growing E. coli, pansensitive. However because of her weakness it was felt she might have some mild dehydration and she was admitted overnight for observation for fluids and IV antibiotics. On rounds today she notes that her chief complaint is that she cannot walk. She is really unable to give more details of this but states that she has not been able to walk for 3 to 4 days. Hospital Course Hospital Course Hospital Course: Patient was admitted. Found to have a UTI. Electrolytes and other labs are unremarkable. She was subjected to MRI scanning because of her ataxia and weakness and was found to have an acute stroke. She has a history of an acute stroke in the past 2 years admitted and placed on statins, BONI inhibitor and aspirin but she has been noncompliant with his regimen and only takes it every now and then. She was restarted on this regimen. CTA of neck showed less than 50% stenosis bilaterally. Review of previous work-up shows normal echocardiogram in December, but I can find no evidence of a bubble study being done. She is also had normal Holter monitors with no A. fib and multiple EKGs have never shown A. fib but she has never had a formal 30-day event recorder. Given her persistent need for PT and weakness, [facility] was contacted for evaluation accepted her transfer. To be transferred there today pending insurance approval. Exam Data for Last 24 hours Vital signs and Labs for Last 24 Hours: Temp Pulse Resp BP Pulse Ox 98.5 F 66 18 142/81 H 97 05/23/22 07:38 05/23/22 07:38 05/23/22 07:38 05/23/22 07:38 05/23/22 07:38 I & O for Last 24 hours: Intake & Output 05/20/22 05/21/22 05/22/2223 11:59 11:59 11:59 11:59 Intake Total 3061 / 3061 3547 / 3547 Output Total 300 / 300 1950 / 1950 Balance 2761 / 2761 1597 / 1597 Weight 138 lb 144 lb 9.6 oz 140 lb 12.8 oz Constitutional Constitutional: no acute distress *Routine HEENT Exam Head: Present normocephalic Eye: Present EOMI and PERRL ENT: Present mucous membranes moist *Routine Neck Exam Neck: Present supple; Absent lymphadenopathy *Routine Respiratory Exam Respiratory: Present CTA bilaterally *Routine Cardiovascular Exam Cardiovascular: Present RRR *Routine Abdominal Exam Abdominal: Present soft and normoactive bowel sounds; Absent tenderness *Routine Extremities Exam Extremities: Absent cyanosis, clubbing or edema *Routine Skin Exam Skin: Present warm; Absent rash *Routine Neurological Exam Neurological: Present alert, oriented X3 and CN II-XII intact Comments: Ataxia noted. Please see PT evaluation DS: Diagnosis Discharge Diagnosis (1) Recurrent urinary tract infection: Status: Acute (2) History of TIA (transient ischemic attack): Status: Acute (3) Gait instability: Status: Acute Meds Home Medications and Allergies Home Medications Medication Instructions Recorded Confirmed Type acetaminophen 325 mg tablet 650 mg PO Q4HP PRN Fever Or Mild 05/23/22 Rx Pain #90 tabs atorvastatin 40 mg tablet 40 mg PO HS #30 tabs 05/23/22 Rx ceftriaxone 1 gram solution for 1 g IV Q24H #1 ea 05/23/22 Rx injection lisinopril 5 mg tablet 5 mg PO DAILY #30 tabs 05/23/22 Rx pantoprazole 40 mg tablet,delayed 40 mg PO HS #30 tabs 05/23/22 Rx release tolterodine 2 mg capsule,extended
== END 2022-05-23 13:50 | DRG 690 ==
LOC: ER 08:58 → 2ND 12:06
PROVIDERS: Admitting Provider Internal Medicine Adolescent Medicine; Emergency Provider Student in an Organized Health Care Education/Training Program; PCP Internal Medicine Adolescent Medicine; Visit Provider Internal Medicine Adolescent Medicine
DX: N39.0 Urinary tract infection, site not specified (principal); Z86.73 Personal history of transient ischemic attack (TIA), and cerebral infarction without residual deficits; I10 Essential (primary) hypertension; J84.10 Pulmonary fibrosis, unspecified; R26.89 Other abnormalities of gait and mobility
CPT/HCPCS: 36415; 70450; 70496; 70498; 70551; 71045; 80048; 80053; 81001; 82803; 82962; 83690; 83735; 84439; 84443; 84484; 85025; 87086; 87088; 87186; 92523; 93005; 97116; 97162; 97165; 97530; 99285; C9803; J0696; J2405; Q9967; U0003; U0005

== ENCOUNTER → 2022-07-01 15:57 | Outpatient (CLI) | payer MEDICARE, SELFPAY ==
[2022-07-01 17:38] LABS: Anion Gap 6.9 mEq/L (5-15); Blood Urea Nitrogen 14 mg/dl (7-17); Carbon Dioxide 32 mmol/L (22.0-30.0); Chloride 104 mmol/L (98-107); Estimated Glomerular Filt Rate 95 ml/min (>60); GFR (African American) 115 ML/MIN (>60); Glucose 195 mg/dl (74-100); Potassium 4.9 mmoL/L (3.5-5.1); Sodium 138 mmol/L (136-145)
== END ==
PROVIDERS: PCP Internal Medicine Adolescent Medicine; Visit Provider Specialist
DX: I51.89 Other ill-defined heart diseases (principal); I63.9 Cerebral infarction, unspecified; Z86.73 Personal history of transient ischemic attack (TIA), and cerebral infarction without residual deficits
CPT/HCPCS: 36415; 80048

== ENCOUNTER → 2022-07-04 13:57 | Outpatient (CLI) | payer MEDICARE, SELFPAY ==
--- NOTE | 2022-07-04 14:07 | CA_ITS ---
APPROVED REPORT EXAM: Comprehensive 2D, Doppler, and color-flow Echocardiogram Ribber: Itzel Cao CRT Ht: 5 ft 4 in Wt: 141lbs BSA: 1.69 BP: 109/70 mmHg Indications: Shortness of Breath, TIA's, Pulmonary Fibrosis 2D Dimensions LVOT 1.84 cm (M/F) 1.5-2.5 LA Volume 31.00 mL LA Volume Index 17.90 mL/m2 (M/F) 16-34 M-Mode Dimensions RVDd 3.38 cm (0.9-2.6) LA Diam 3.01 cm (1.9-4.0) LVDd 3.00 cm (3.5-5.7) Ao Diam 3.56 cm (2.0-3.7) LVDs 2.10 cm (3.5-5.7) IVSd 1.83 cm (0.6-1.1) PWd 0.81 cm (0.6-1.1) EF (Teich) 58.90% FS 30.00% EDV (Teich) 35.00 mL ESV (Teich) 14.40 mL LV Diastology E Decel Time 250.00 (160-240 msec) E/A Ratio 0.94 MED E' 5.90 (< 7 cm/sec) MED A' 9.40 cm/s E'/MED E' Ratio 13.24 (>14) LAT E' 4.90 (<10 cm/sec) LAT A' 11.50 cm/s E/LAT E' Ratio 15.94 (>14) Aortic Valve LVOT Max 94.00 (70-110 cm/s) LVOT VTI 23.86 cm AoV Peak Luis. 108.00 (50-130 cm/s) AI PHT 687.00 ms AO Peak GR. 4.70 mmHg AO Mean GR. 3.30 (<5 mmHg) AO VTI 28.97 (18-25 cm) ANNMARIE (VTI) 2.19 (2.5-4.5 cm2) Mitral Valve MV A Velocity 83.00 (40-130 cm/s) E/A Ratio 0.94 MV Decel. Time 250.00 (160-240 ms) Pulmonary Valve PV Peak Velocity 144.00 (50-150 cm/s) Tricuspid Valve TR P. Velocity 326.00 cm/s RAP Estimate 10.00 mmHg RVSP 52.60 mmHg Left Ventricle Left atrium is mildly enlarged, left ventricle is normal size mild concentric left ventricular hypertrophy, estimated ejection fraction 55% with no regional wall motion abnormality, grade 1 diastolic dysfunction seen without tissue Doppler evidence of raise left atrial pressure. Right Ventricle Right atrium and right ventricle are mildly enlarged with normal contractility. Aortic Valve Aortic valve is thickened and calcified without aortic stenosis, there is mild aortic insufficiency. Mitral Valve Mitral valve is grossly normal, there is trace mitral regurgitation. Tricuspid Valve Tricuspid valve grossly normal, there is trace tricuspid regurgitation, tricuspid regurgitation jet velocity is inadequate for calculation of the right ventricular systolic pressure. Pulmonic Valve Pulmonic valve is poorly visualized. Great Vessels Aortic root is normal size. Inferior vena cava is normal size with normal inspiratory collapse. Pericardium No significant pericardial effusion noted. Conclusion 1. Mild biatrial enlargement, normal left ventricular size, mild concentric left ventricular hypertrophy, estimated ejection fraction 55% with no regional wall motion abnormality, grade 1 diastolic dysfunction seen without tissue Doppler evidence of raise left atrial pressure. 2. Mildly enlarged right ventricle with normal contractility. 3. Mild aortic, trace mitral and tricuspid regurgitation. 4. No significant pericardial effusion noted. 5. Inferior vena cava is normal size with normal inspiratory collapse. Electronically signed by : Shashank Neal MD 07/05/2022 09:48:00
--- NOTE | 2022-07-04 14:43 | MR_ITS ---
FINAL REPORT CLINICAL HISTORY: Recent stroke 1 month ago. COMPARISON: 05/22/2022 FINDINGS: Multiplanar MR imaging of the brain was performed without and with contrast. There is age-appropriate atrophy. Scattered foci of increased T2 signal are seen in the cerebral white matter that have a nonspecific appearance but likely represent moderate chronic ischemic/gliotic changes. There is no evidence of intracranial hemorrhage or mass. No abnormal ventricular dilatation is identified. There is no evidence of shift of the midline structures. No abnormal extra-axial fluid collection is seen. A chronic lacunar infarct is seen in the left basal ganglia. There is a subacute/chronic right cerebellar hemisphere infarct with some contrast enhancement. The posterior fossa and brainstem have an unremarkable appearance. No other abnormal contrast enhancement is seen. Normal major vessel vascular flow voids are seen. IMPRESSION: Interval evolution of right cerebellar infarct now with a subacute-chronic appearance. Moderate chronic ischemic changes with multifocal chronic infarcts. No acute intracranial abnormality. Reviewed, Interpreted and Dictated by Flavio Barnes III, MD Transcribed by Jennifer Morales Authenticated and . [facility]
== END ==
PROVIDERS: PCP Internal Medicine Adolescent Medicine; Visit Provider Specialist
DX: Z86.73 Personal history of transient ischemic attack (TIA), and cerebral infarction without residual deficits (principal); I63.9 Cerebral infarction, unspecified
CPT/HCPCS: 70553; 93306; A9576

== ENCOUNTER 2022-07-08 08:25 | Day surgery (SDC) | payer MEDICARE, SELFPAY ==
[2022-07-08 08:31] VITALS: BMI 24.2
[2022-07-08 08:48] VITALS: BP 158/84; PULSE 55; RESP 20; O2SAT 96
[2022-07-08 09:57] VITALS: BP 174/98; PULSE 51; RESP 18; O2SAT 97
--- NOTE | 2022-07-08 13:29 | P.PCN_ITS ---
[facility] Loop Recorder Date: 07/08/22 Time: 08:30 Procedure Performed:: Implantation of loop recorder Indication:: Cryptogenic stroke Technique:: Patient was brought to the cardiac Content Curator. After informed consent obtained, 1% lidocaine with epinephrine was used to anesthetize the site along the left anterior aspect of the chest near the sternal border. Using the preformed scalpel, an incision was made and using the supplied preloaded apparatus, the loop recorder was placed subcutaneously without difficulty. Following the deployment of the loop recorder interrogation of the device was performed to ensure appropriate voltage was being detected. Once this was verified, Steri- Strips were placed over the incision and the patient was prepped to discharge home. Patient tolerated the procedure well with minimal discomfort. Impression:: Successful implantation of loop recorder Serial Number:: [employer] model M301 LUX-[id number] Serial #[id number] Plan:: Routine postop care
== END 2022-07-08 10:07 | disposition home or self-care (01) ==
LOC: CATHLAB 08:27
PROVIDERS: PCP Internal Medicine Adolescent Medicine; Visit Provider Internal Medicine
DX: R42 Dizziness and giddiness (principal); Z86.73 Personal history of transient ischemic attack (TIA), and cerebral infarction without residual deficits; J84.10 Pulmonary fibrosis, unspecified; R06.00 Dyspnea, unspecified; Z45.09 Encounter for adjustment and management of other cardiac device
CPT/HCPCS: 33285

== ENCOUNTER → 2022-07-17 15:54 | Outpatient (CLI) | payer MEDICARE, SELFPAY | PROVIDERS: PCP Internal Medicine Adolescent Medicine; Visit Provider Specialist | DX: I63.9 Cerebral infarction, unspecified (principal) | CPT/HCPCS: 94762 ==

== ENCOUNTER → 2022-08-05 09:22 | Outpatient (CLI) | payer MEDICARE, SELFPAY ==
[2022-08-05 10:25] VITALS: PULSE 58; PULSE 64
== END ==
PROVIDERS: PCP Internal Medicine Adolescent Medicine; Visit Provider Specialist
DX: J84.10 Pulmonary fibrosis, unspecified (principal)
CPT/HCPCS: 94060; 94618; 94640; 94727; 94729

== ENCOUNTER 2022-08-09 09:30 | Outpatient (RCR) | payer MEDICARE, SELFPAY ==
--- NOTE | 2022-07-05 14:39 | HMH.PTOPEV ---
PT Outpatient Evaluation Rehab PT Outpatient Evaluation Start: 07/05/22 14:00 Freq: Status: Active Protocol: Document 07/05/22 14:00 CRYS (Rec: 07/05/22 14:39 CRYS [id number]) E-signed By Deshaun Plata, PT Outpatient Therapy Subjective History Subjective History Patient is an 87 year old female presenting to outpatient PT with reports of poor standing/ambulatory balance and difficulty with R hand fine motor control, especially with handwriting being the main concern. Patient spent 1 week at [facility]. No falls to report. No other comorbidities to report. 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 My balance is a little off. Prior Functional Limitations Prior Functional [place] Level None Current Functional Limitations Comment standing/ambulation/writing Hx of Falls Hx Falls No Gait/Posture Asssessment General Gait Observation Wide Based Gait,Shuffling Step Assistive Devices Straight Cane Level of Transfer Assist Independent Hip Observation in Gait Swing No Deviation Hip Observation in Gait Stance No Deviation Ankle/Foot Observation in Gait Swing Decreased Foot Clearance Ankle/Foot Observation in Gait Stance Decreased Heel Strike Dynamic Gait Index Test Protocol Gait Level Surface Mild Impairment Query Text: Instructions: Walk at your normal speed from here to the next alexsandra (20'). Grading: Alexsandra the lowest category that applies. Change in Gait Speed Mild Impairment Query Text: Instructions: Begin walking at your normal pace (for 5'), when I tell you go , walk as fast as you can (for 5'). When I tell you slow , walk as slowly as you can (for 5'). Grading: Alexsandra the lowest category that applies. Gait with Horizontal Head Turns Mild Impairment Query Text:
--- NOTE | 2022-08-09 10:20 | HMH.RHREAS ---
Rehab Reassessment Rehab OP Re-assessment Start: 08/09/22 10:10 Freq: Status: Active Protocol: Document 08/09/22 10:10 JERSON (Rec: 08/09/22 10:20 JERSON [id number]) E-signed By Denys Barnes, PT Rehab Re-assessment Subjective Subjective Pt reports, I haven't seen a drastic change in my walking yet. Maybe just a little bit. Objective Objective Notes Dynamic Gait Index (DGI)= which is increase of 4 pts since initial eval. Gait: Gait pattern remains somewhat more rigid overall. Stride length more normalized this date B. Assessment Progress Assessment Slower Than Expected Assessment Notes Pt has shown some improvements with gait as noted by 4 pt increase in her DGI score. However, this does remain below the threshold for decreased concern of falls (< DGI score denotes increased fall risk). She continues to need skilled interventions to improve her balance and gait to increase her ability to safely perform ADLs. Patient goals met ST Goals Not Met LT,2,3,4 Revised Goals none Plan Plan Continue per initial POC Frequency of Therapy 2 x/wk Duration of therapy 4 wks Time and Billing Re-Eval Time 17 Re-Eval Billing Units 1 PHYSICIAN CERTIFICATION: I certify the specified therapy services for Jose Benitez are required, authorized, and reviewed every 30 days.
== END 2022-08-09 09:35 | disposition home or self-care (01) ==
LOC: PT 09:30
PROVIDERS: PCP Internal Medicine Adolescent Medicine; Visit Provider Specialist
DX: R26.89 Other abnormalities of gait and mobility (principal); I63.9 Cerebral infarction, unspecified
CPT/HCPCS: 97110; 97112; 97163; 97164; 97530

== ENCOUNTER 2022-08-09 10:00 | Outpatient (RCR) | payer MEDICARE, SELFPAY ==
--- NOTE | 2022-07-29 13:03 | HMH.OTOPEV ---
OT Inpatient Evaluation Rehab OT Outpatient Eval Start: 07/29/22 12:49 Freq: Status: Active Protocol: Document 07/29/22 12:50 RMARSHALL (Rec: 07/29/22 13:02 RMARSHALL [id number]) E-signed By Dior Granger, OT Outpatient Therapy Subjective History Subjective History Pt is an 87 year old female who reports to therapy for initial evaluation to RUE due to CVA. Pt had a CVA at the end of April,. Pt's right side was affected, which is her dominant side. 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 She does not have any pain, numbness, or tingling in RUE. 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 Pt will continue to be seen weekly in order to address these deficits. 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 Strength ST lbs R hand Timber Framer Helper Strength LT lbs Chief Complaint Weakness,Decreased Timber Framer Helper Strength,Decreased Coordination Prior Functional Limitations None Current Functional Limitations Lifting,Housework,Recreation Activity Level of pain today (0-10) 0 Pain scale - at its best (0-10) 0 Pain scale - at its worst (0-10) 0 Shoulder/Elbow Eval Shoulder Objective Measurements Shoulder MMT Right Shoulder Abduction Strength Grade 4- Good- Shoulder Flexion Strength Grade 4- Good- Shoulder External Rotation Strength 4- Good- Grade Shoulder Internal Rotation Strength 4- Good- Grade Shoulder Strength Patient Testing Sitting Position Elbow Objective Measurements Elbow MMT Right
== END 2022-08-09 11:00 | disposition home or self-care (01) ==
LOC: OT 10:00
PROVIDERS: PCP Internal Medicine Adolescent Medicine; Visit Provider Specialist
DX: I63.9 Cerebral infarction, unspecified (principal); R53.1 Weakness; Z86.73 Personal history of transient ischemic attack (TIA), and cerebral infarction without residual deficits
CPT/HCPCS: 97110; 97166; 97530

== ENCOUNTER → 2022-11-05 12:13 | Outpatient (CLI) | payer MEDICARE, SELFPAY ==
[2022-11-05 13:53] LABS: Hemoglobin A1C 7.4 % (4.0-6.0)
[2022-11-05 22:01] LABS: Cholesterol 195 mg/dl (140-200); Triglycerides 278 mg/dl (30-150); VLDL Cholesterol 56 mg/dL (0-40)
[2022-11-05 22:02] LABS: Chol/HDL Ratio 4.5 (1-3.5); HDL Cholesterol 43 mg/dl (40-60)
== END ==
PROVIDERS: PCP Internal Medicine Adolescent Medicine; Visit Provider Specialist
DX: I63.9 Cerebral infarction, unspecified (principal); R73.9 Hyperglycemia, unspecified
CPT/HCPCS: 36415; 80061; 83036

== ENCOUNTER 2022-11-29 13:00 | Outpatient (RCR) | payer MEDICARE, SELFPAY ==
--- NOTE | 2022-11-12 11:20 | HMH.SLAPHASI ---
Speech & Language Evaluation Speech/Language Aphasia Evaluation Start: 11/12/22 10:48 Freq: once Status: Complete Protocol: Document 11/12/22 10:48 YRIS (Rec: 11/12/22 11:20 NAVARRONAEEM [id number]) Aphasia Assessment/Goals/Plan Assessment Date of Evaluation: 11/12/22 Evaluation Type Initial Certification Assessment/Problems Difficulty formulating thoughts/ideas per MD order Does Patient Qualify for Service Yes Qualify/Failure Comment Based on clinical observation, patient interview, and informal cognitive-linguistic evaluation, Jose Benitez would benefit from skilled speech therapy services 1x/ week to address nonfluent aphasia and executive function skills. Plan Pt will be seen # times/week 1 for # weeks 12 Anticipate reaching STG in # weeks 8 Anticipate reaching LTG in # weeks 12 Pt/Guardian verbally ack understanding Yes of dx/prognosis/goals G -code Required No STG-Verbal Expressive Language Make Up Sentences 95 STG-Comparative/Linguistic Skills Thought Organization 95 STG-Divergent Thinking Deal w/Abstract or Unique Concepts 90 Deductive Reasoning 90 Determine Cause When Given Results 90 Open-Ended Problem Solving 90 Senior Care Goals Increase verbal expression skills to Yes: 90% communicate w/family & friends. Education Instructions provided Discussed assessment results and POC with pt who expressed understanding. Pt/Caregiver Able to Recall Information Able to recall/restate Reinforcement needed No Speech & Language HPI History Present Illness Description of Patient Problem Patient is an 87-year-old female with past medical history of TIA, hypertension, and a recent cerebral infarction in April 2022. 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 Ms. Benitez states she struggles to get her words out and is thinking about what she will say next. Rehab Services Assessed Speech therapy Is this evaluation r/t stroke? Yes Language [place] Lang/Spoken in Home Japanese Education/Learning/Fam
== END 2022-11-29 14:00 | disposition home or self-care (01) ==
LOC: ST 13:00
PROVIDERS: PCP Internal Medicine Adolescent Medicine; Visit Provider Specialist
DX: I69.328 Other speech and language deficits following cerebral infarction (principal)
CPT/HCPCS: 92523; 97129; 97130

== ENCOUNTER 2022-12-20 13:00 | Outpatient (RCR) | payer MEDICARE, SELFPAY ==
--- NOTE | 2022-11-12 09:29 | HMH.PTOPEV ---
PT Outpatient Evaluation Rehab PT Outpatient Evaluation Start: 11/12/22 09:21 Freq: Status: Active Protocol: Document 11/12/22 09:21 ELI (Rec: 11/12/22 09:29 ELI [id number]) E-signed By Enrique Kaiser, PT Outpatient Therapy Subjective History Subjective History Pt presents s/p CVA in . Pt reports gait distrubances since 'this second stroke in April.' Pt reports improved gait following rehab stay at [facility] in Apr, however, reports noticed regressions in gait beginning in May. 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 when on unlevel terrain. Chief Complaint Decreased Coordination Symptoms Relieved By Activity Symptoms Aggravated By Walking Prior Functional Limitations Walking,Balance Current Functional Limitations Walking,Balance Hip/Knee Eval Gait Observation General Gait Pattern Observation Ataxic Gait,Shuffling Step Assistive Device Assistive Devices None / NA MMT bilateral Hip Flexion Strength Grade 5 Normal Hip Abduction Strength Grade 4 Good Hip Adduction Strength Grade 5 Normal Hip Extension Strength Grade 4 Good Knee Extension Strength Grade 5 Normal Knee Flexion Strength Grade 5 Normal Ankle/Foot Eval MMT Ankle Dorsiflexion Strength Grade 5 Normal Balance Eval Timed Up and Go Test 3. Is the Timed Up and Go Test result < yes 12 seconds? Tinetti Sitting Balance Sitting Balance Steady, safe Arising from Chair Ability to Arise Able, w/o using arms Attempts to Arise Arises on 1st attempt Standing Balance Immediate Standing Balance Steady with support Standing Balance Steady, wide stance Nudged Response Staggers, catches self Standing with Eyes Closed Unsteady Turning Step Pattern Turning 360 Degrees Discontinuous steps Stability Turning 360 Degrees Unsteady, grabs/staggers Sitting Down Sitting Down Safe, steady Gait and Step Initiation of Gait No hesitancy Right Foot Step Length Does pass stance foot Right Foot Step Height Does not clear floor Left Foot Step Length Does pass stance foot Left Foot Step Height Completely clears floor Step Description Step Symmetry Step length appears equal Step Continuity Steps appear continuous Gait Description Path Description Mild/moderate deviation Trunk Description No sway Walking Stance Heels together Scoring and Interpretation Tinetti Composite Score (points) 20 Interpretation of Scores At risk for falls (19-24) Outpatient Therapy Assessment Impairments Problems/Impairmments Impaired Gait Pattern,Impaired Balance,Impaired Tinnetti Score,Impaired TUG Time, Impaired Self Care/Self Management Prognosis Rehab Potential Good Clinical Impression Consistent with Diagnosis Yes Short Term Goals Number of Weeks 4 Increase Strength Yes: 4+/5 B/L HIP MM Improve Gait Pattern without Assistive Yes: WFL ON LEVEL TERRAIN Device Increase Tinnetti Score Yes: 23-24 Decrease TUG Time Yes: 12 SEC NO A.D. Patient to be Ind w/ HEP Yes Chcf Goals Number of Weeks 6-8 Increase Strength Yes: 5/5 B/L HIP MM Improve Gait Pattern without Assistive Yes: WFL ON UNLEVEL TERRAIN Device Improve Tolerance to Work Activities Yes: WFL Increase Tinnetti Score Yes: 26-28 Decrease TUG Time Yes: >12 SEC W/O A.D. Patient to be Ind w/ Advanced HEP Yes Outpatient Therapy Plan of Care Treatment Plan May Include Therapeutic Exercise Including Home Yes Exercise Program Manual Therapy Techniques Yes Neuromuscular Re-education Yes Therapeutic Activities to Return to Yes Previous Functional/Work Level Gait Training Yes ADL/Self Care Education Yes Eval/Re-Eval Yes Frequency Times per week 2-3 Duration Number of Weeks 6-8 Addendums This patient is a candidate for social No or vocational rehab? Patient/Guardian verbally acknowledges Yes understanding of treatment program and consents to further treatment? Patient/Guardian verbally acknowledges Yes understanding of diagnosis, prognosis and goals for treatment? G -code Required No Eval Complexity PT Charges 40674 - Low Complexity Shoulder/Elbow Eval Shoulder Objective Measurements Elbow Objective Measurements PHYSICIAN CERTIFICATION: I certify the specified therapy services for Jose Benitez are required, authorized, and reviewed every 30 days.
--- NOTE | 2022-12-20 13:41 | HMH.RHREAS ---
Rehab Reassessment Rehab OP Re-assessment Start: 11/12/22 09:21 Freq: Status: Active Protocol: Document 12/20/22 13:34 ROLDANRADHA (Rec: 12/20/22 13:41 ELI [id number]) E-signed By Enrique Kaiser, PT Tinetti Sitting Balance Sitting Balance Steady, safe Arising from Chair Ability to Arise Able, w/o using arms Attempts to Arise Arises on 1st attempt Standing Balance Immediate Standing Balance Steady w/o support Standing Balance Steady, wide stance Nudged Response Staggers, catches self Standing with Eyes Closed Unsteady Turning Step Pattern Turning 360 Degrees Continuous steps Stability Turning 360 Degrees Steady Sitting Down Sitting Down Safe, steady Gait and Step Initiation of Gait No hesitancy Right Foot Step Length Does pass stance foot Right Foot Step Height Completely clears floor Left Foot Step Length Does not pass stance foot Left Foot Step Height Completely clears floor Step Description Step Symmetry Step length appears equal Step Continuity Steps appear continuous Gait Description Path Description Mild/moderate deviation Trunk Description No sway but posturing Walking Stance Heels together Scoring and Interpretation Tinetti Composite Score (points) 22 Interpretation of Scores At risk for falls (19-24) Rehab Re-assessment Subjective Subjective Pt reports no significant changes in overall function since I eval, however, it should be noted that pt has missed multiple scheduled skilled P.T. appts. Pt also reports no pain. Objective Objective Notes MMT: B/L HIP FLX 4/5, B/L HIP ABD 4-4+/5, B/L HIP ADD 4+/5, B/L KNEE FLX 5/5, B/L KNEE EXT 5/5, B/L DF 4+-5/5 TU SEC NO A.D. TINETTI:22 Assessment Progress Assessment Slower Than Expected Assessment Notes IMPROVED TUG SCORE/TIME, AND IMPROVED STRENGTH Patient goals met STG'S 3/5 Goals Not Met STG'S 2/5, LTG'S 6 Plan Plan Pt to continue w/skilled P.T. to make further improvements in balance, Tinetti and TUG score to allow for optimal function Frequency of Therapy 1-2x/wk Duration of therapy 3-5wks Time and Billing Re-Eval Time 11 Re-Eval Billing Units 0 PHYSICIAN CERTIFICATION: I certify the specified therapy services for Karrol Emmanuel are required, authorized, and reviewed every 30 days.
== END 2022-12-20 14:00 | disposition home or self-care (01) ==
LOC: PT 13:00
PROVIDERS: PCP Internal Medicine Adolescent Medicine; Visit Provider Specialist
DX: I63.9 Cerebral infarction, unspecified (principal); R26.89 Other abnormalities of gait and mobility
CPT/HCPCS: 97112; 97163; 97164; 97530

== ENCOUNTER 2023-06-06 08:56 | Emergency (ER) | payer MEDICARE, SELFPAY ==
[2023-06-06] VITALS (7 sets, daily range): BP systolic 106–163; BP diastolic 66–80; PULSE 56–66; RESP 18; TEMP 36.4–36.6; O2SAT 94–99; BMI 24.0
--- NOTE | 2023-06-06 08:56 | PC.NURSE ---
Dr. Carr at BS for pt eval
--- NOTE | 2023-06-06 08:59 | CT_ITS ---
FINAL REPORT TECHNIQUE: Thin section axial CT with IV contrast supplemented with multiplanar reconstruction under CT angiogram protocol. 3-D reconstructions were performed. This study was performed with techniques to keep radiation doses as low as reasonably achievable (ALARA). Individualized dose reduction techniques using automated exposure control or adjustment of mA and/or kV according to the patient''s size were employed. CLINICAL HISTORY: lower ext weakness. hx of stoke stroke protocol FINDINGS: No aneurysm is seen. Major intracranial vessels are patent without significant stenosis. IMPRESSION: No large vessel occlusion or stenosis. Reviewed, Interpreted and Dictated by Flavio Barnes III, MD Transcribed by Jennifer Morales Authenticated and [facility]
--- NOTE | 2023-06-06 08:59 | CT_ITS ---
FINAL REPORT CLINICAL HISTORY: lower ext weakness. poss stroke COMPARISON: July 04, 2022 MRI FINDINGS: Axial images of the head were obtained without contrast. Coronal reformatted images were also obtained. This study was performed with techniques to keep radiation doses as low as reasonably achievable (ALARA). Individualized dose reduction techniques using automated exposure control or adjustment of mA and/or kV according to the patient''s size were employed. There is generalized age-appropriate atrophy. Periventricular low-attenuation areas are seen consistent with moderate chronic ischemic changes. Bilateral areas of encephalomalacia are noted. There is a chronic left lentiform nucleus infarct. Encephalomalacia is noted in the inferior right cerebellar hemisphere. There is no evidence of intracranial hemorrhage or mass. There is no evidence of acute infarct. There is no evidence of shift of the midline structures. No skull abnormality is seen on the bone window images. IMPRESSION: Atrophy and moderate periventricular chronic ischemic changes. Several areas of encephalomalacia. No acute intracranial abnormality identified. Authenticated and [facility]
--- NOTE | 2023-06-06 08:59 | CT_ITS ---
FINAL REPORT CLINICAL HISTORY: lower ext weakness, hx of stroke FINDINGS: CTA NECK Thin section axial CT with contrast with multiplanar reconstruction NASCET criteria and technique was utilized during interpretation. Aortic arch: Arch shows no significant narrowing. Great vessel origins are widely patent . Right carotid: No significant stenosis is seen of the cervical common or internal carotid artery . Left carotid: No significant stenosis is seen of the cervical common or internal carotid artery . Vertebrals: Vertebral arteries are codominant. No significant stenosis is present . IMPRESSION: No large vessel occlusion or stenosis. Reviewed, Interpreted and Dictated by Flavio Barnes III, MD Transcribed by Jennifer Morales Authenticated and [facility]
--- NOTE | 2023-06-06 09:00 | PC.NURSE ---
Notified RAD CT scans will be stroke protocol
--- NOTE | 2023-06-06 09:03 | PC.NURSE ---
Dr. Carr at to speak with pt
--- NOTE | 2023-06-06 09:06 | PC.NURSE ---
PT gone to RAD via stretcher
--- NOTE | 2023-06-06 09:08 | ED_ITS ---
Discharge Plan Disposition Patient Disposition: Home, Self-Care Condition: Good Prescriptions Prescriptions: New cefadroxil 500 mg capsule 500 mg PO BID 7 Days Qty: 14 0RF No Action Gemtesa 75 mg tablet 75 mg PO DAILY Qty: 30 2RF carvedilol 12.5 mg tablet 12.5 mg PO BID aspirin [Adult Low Dose Aspirin] 81 mg tablet,delayed release (DR/EC) 81 mg PO DAILY ascorbic acid (vitamin C) 1,000 mg tablet 1 g PO BID losartan 50 mg tablet 50 mg PO DAILY atorvastatin 40 mg Tablet 40 mg PO HS Qty: 30 0RF Referrals Follow up/Referrals: Skinny Mackay MD [Primary Care Provider] - See instructions Activity Restrictions/Add. Instructions Additional Instructions/Restrictions: You have been evaluated in the ED for your complaints. You may follow-up with your PCP in the next 3 to 5 days. Please return to ED for any new or worsening symptoms. I have written for prescription for cefadroxil to treat your urinary tract infection. Please take this medication as prescribed. Clinical Impressions Clinical Impression: Acute UTI, Bilateral leg weakness, Dizziness Instructions Patient Instructions: Urinary Tract Infection Discharge ED Provider: Gilberto Carr Adult [facility] General Chief complaint: Neuro Symptoms/Deficit Stated complaint: Stroke symptoms Time Seen by Provider: 06/06/23 08:59 Mode of Arrival: Ambulatory Source of Information: Patient Limitations: No Limitations Description of Symptoms (Recalled from ER Triage Doc. by RN): Pt. arrived to the ED with c/o having a stoke. Pt. states she has a stroke in of 2022 and she had similar symptoms. Stoke assessment negative, no deficits noted. Pt. is having some aphasia when answering questions. She states she started having difficulty walking around 7 am. History of Present Illness HPI narrative: 87-year-old female with past medical history significant for TIA, cerebellar stroke, hypertension, presents today for evaluation concerning bilateral lower extremity weakness and dizziness onset around 7 AM this morning. Patient maria eugenia burt that she believes that she is having a stroke as her symptoms today are similar to when she was diagnosed with her stroke in April of last year. She denies having any fevers, chills, chest pain, shortness of breath, nausea, vomiting, abdominal pain, dysuria, hematuria. She is not currently on blood thinners. Does report some difficulty with finding her words however has had normal speech otherwise and denies facial droop. No other complaints on assessment. Related Data Home Medications Medication Instructions Recorded Confirmed ascorbic acid (vitamin C) 1,000 mg 1 g PO BID 06/25/22 06/06/23 tablet aspirin 81 mg tablet,delayed 81 mg PO DAILY 06/25/22 06/06/23 release (Adult Low Dose Aspirin) losartan 50 mg tablet 50 mg PO DAILY 07/17/22 06/06/23 carvedilol 12.5 mg tablet 12.5 mg PO BID 10/22/22 06/06/23 Previous Rx's Medication Instructions Recorded atorvastatin 40 mg tablet 40 mg PO HS #30 tabs 05/23/22 vibegron 75 mg tablet (Gemtesa) 75 mg PO DAILY #30 tabs 07/22/22 cefadroxil 500 mg capsule 500 mg PO BID 7 days #14 caps 06/06/23 Allergies Allergy/AdvReac Type Severity Reaction Status Date / Time No Known Allergies Allergy Verified 06/06/23 09:02 [facility] Disclaimer: The information contained in this section may have been updated after the patient was seen, as this information can be updated by other users. Medical History (Updated 06/06/23 @ 13:27 by Christiano Philippe MD) Bilateral serous otitis media Constipation Cryptogenic stroke Cystocele with prolapse Dyspnea History of hypertension HTN (hypertension) Impacted cerumen of right ear Incontinence in female Pulmonary fibrosis Right serous otitis media Stroke Surgical History H/O: hysterectomy History of tubal ligation Family History Mother Diabetes Stroke Father Diabetes Stroke Social History Smoking Status: Never smoker second hand exposure: No alcohol intake: current substance use type: denies use current occupational status: retired Travel in the last 8 weeks: None household members: none housing: house current occupational exposures/hazards: No caffeine: Yes ROS Obtained: Yes All systems reviewed & no additional complaints except as documented Physical Exam General General appearance: alert and in no apparent distress Head Head exam: atraumatic and normocephalic Eye Eye exam: Present normal appearance, PERRL and EOMI ENT ENT exam: Present normal oropharynx and mucous membranes moist Neck Neck exam: Present full ROM; Absent meningismus Respiratory Respiratory exam: Absent respiratory distress, wheezes, stridor or accessory muscle use Cardiovascular Cardiovascular exam: Present normal rhythm Abdominal Exam Abdominal exam: Present soft; Absent distention, tenderness, guarding, rebound or rigidity Neurological Exam Neurological exam: Present alert, oriented X3 and CN II-XII intact; Absent motor sensory deficit Expanded Neurological Exam Patient oriented to: Present person, place and time Speech: Absent fluid speech (Patient with some difficulty with finding her words.) Cerebellar function: Normal: finger to nose and heel to fernandez Motor strength - LUE: 5/5 Motor strength - RUE: 5/5 Motor strength - LLE: 5/5 Motor strength - RLE: 5/5 Psychiatric Psychiatric exam: Present normal affect and normal mood Skin Skin exam: Present warm and dry Medical Decision Making Medical Records Medical records reviewed: Yes I reviewed the patient's medical records. Pankaj Inquiry Pt receiving controlled substance: No Pankaj was queried for this patient: No Vital Signs: 06/06/23 09:02 06/06/23 10:30 06/06/23 11:00 Temperature 97.5 F L Temperature Source Oral Pulse Rate 60 57 L Pulse Rate [Right Brachial] 66 Respiratory Rate 18 Blood Pressure 136/80 116/70 Blood Pressure [Right Arm] 163/80 H Blood Pressure Mean Blood Pressure Mean [Right Arm] 107 Blood Pressure Source [Right Arm] Automatic Cuff Blood Pressure Position [Right Arm] Sitting 02 Sat by Pulse Oximetry 97 95 94 L Oxygen Delivery Method Room Air Room Air Room Air 06/06/23 11:31 06/06/23 12:39 06/06/23 13:00 Temperature Temperature Source Pulse Rate 57 L 58 L 56 L Pulse Rate [Right Brachial] Respiratory Rate Blood Pressure 106/70 L 131/70 117/66 Blood Pressure [Right Arm] Blood Pressure Mean 91 Blood Pressure Mean [Right Arm] Blood Pressure Source [Right Arm] Blood Pressure Position [Right Arm] 02 Sat by Pulse Oximetry 96 96 96 Oxygen Delivery Method Room Air Room Air Room Air Lab Data Lab Results 06/06/23 09:00: WBC 8.1, RBC 4.40, Hgb 14.3, Hct 42.5, MCV 96.5, MCH 32.6 H, MCHC 33.8, RDW 13.2, Plt Count 268, MPV 7.7, Neut % (Auto) 41.9, Lymph % (Auto) 44.6, White % (Auto) 7.4, Eos % (Auto) 5.2, Baso % (Auto) 0.9, Neut # (Auto) 3.4, Lymph # (Auto) 3.6, White # (Auto) 0.6, Eos # (Auto) 0.4, Baso # (Auto) 0.1, PT 10.9, INR 1.01, Sodium 135 L, Potassium 4.4, Chloride 103, Carbon Dioxide 28, Anion Gap 8.4, BUN 21 H, Creatinine 0.70, Estimated Creat Clear 41, Estimated GFR 80, Est GFR ( Amer) 96, Glucose 181 H, Calcium 8.5, Magnesium 1.9, Total Bilirubin 0.7, AST 35, ALT 24, Alkaline Phosphatase 123, Troponin I < 0.01, Total Protein 7.3, Albumin 3.8, Globulin 3.5 H, Albumin/Globulin Ratio 1.1 06/06/23 10:09: Urine Color Yellow, Urine Appearance Clear, Urine pH 7.5, Ur Specific Crawford 1.015, Urine Protein Negative, Urine Glucose (UA) Negative, Urine Ketones Negative, Urine Blood Trace-i, Urine Nitrate Positive, Urine Bilirubin Negative, Urine Urobilinogen 0.2, Ur Leukocyte Esterase 3+ A, Urine RBC 5-10, Urine WBC 50-100, Ur Squamous Epith Cells 3-5, Urine Bacteria 4+ 06/06/23 09:00 06/06/23 09:00 Orders (Tests/Meds): ED MEDICATIONS Generic Name Dose Route Start Last Admin Trade Name Freq PRN Reason Stop Dose Admin Ceftriaxone Sodium 2 gm/ 100 mls @ 200 mls/hr 06/06/23 11:30 06/06/23 11:30 Sodium Chloride IV 06/16/23 11:29 200 mls/hr Q12H NANCY Administration Sodium Chloride 10 ml 06/06/23 09:19 Sodium Chloride 0.9% 10ml Syr (Rad Only) IV 07/06/23 09:18 NEEDED PRN Maintain IV Site Discontinued Medications Generic Name Dose Route Start Last Admin Trade Name Freq PRN Reason Stop Dose Admin Iopamidol 100 ml 06/06/23 09:19 06/06/23 09:21 Iopamidol-370 (76%);100ml Bottle IV 06/06/23 09:20 100 ml ONCE ONE Administration Sodium Chloride 50 ml 06/06/23 09:19 06/06/23 09:21 0.9 % Sodium Chloride 50 Ml Vial IV 06/06/23 09:20 50 ml ONCE ONE Administration ORDERS Category Date Time Status CT angio head Stat Cat Scan 06/06/23 08:[address] angio neck Stat Cat Scan 06/06/23 08:[address] head/brain wo con Stat Cat Scan 06/06/23 08:59 Completed Complete Blood Count Auto Diff Stat Lab 06/06/23 09:00 Completed Comprehensive Metabolic Panel Stat Lab 06/06/23 09:00 Completed Magnesium Stat Lab 06/06/23 09:00 Completed Prothrombin Time INR Stat Lab 06/06/23 09:00 Completed Troponin I Stat Lab 06/06/23 09:00 Completed Urinalysis and Microscopic Stat Lab 06/06/23 10:09 Completed Urine Culture Stat Micro 06/06/23 10:09 Received ECG initial Besson Stat Y 06/06/23 09:24 Completed ECG Data Tracing #1: I reviewed this ECG and interpreted as documented below: EKG personally interpreted by me. Normal sinus rhythm with first-degree AV block with NE interval of 252. Rate of [address] elevations are noted. Low voltage QRS. Medical Decision Narrative: 87-year-old female with past medical history significant for TIA, cerebellar stroke, hypertension, presents today for evaluation concerning bilateral lower extremity weakness and dizziness onset around 7 AM this morning. Patient verbalizes that she believes that she is having a stroke as her symptoms today are similar to when she was diagnosed with her stroke in April of last year. On assessment, she is hemodynamically stable and in no acute distress. Afe brile. Neurological exam nonfocal. She was with 5 out of 5 strength in bilateral upper and lower extremities. No facial asymmetry was noted. Normal sensation throughout. She did have somewhat difficulty with finding her words. Chest clear auscultation bilaterally. Abdomen soft nondistended nontender to palpation. Otherwise exam findings unremarkable. Her glucose is noted to be 178. Differential diagnoses include but not limited to CVA, TIA, ACS, electrolyte disturbance, among others. I did personally review patient's CT head imaging and I do not note any intracranial bleeding on my read. Final interpretation by neurology with no acute intracranial abnormalities. She did have atrophy and moderate periventricular chronic ischemic changes and several areas of encephalomalacia. Lab workup today remarkable for a sodium of 135. Initial troponin less than 0.01. Positive nitrates, 3+ leukocyte esterase, 4+ bacteria present on urinalysis, consistent with UTI. This is likely contributing to patient's symptoms today. Given patient's history and similarity of symptoms during her diagnosis of cerebellar stroke on last year, I did strongly consider the diagnosis of TIA and consult with hospital medicine. Hospital medicine has evaluated the patient and we have discussed management. Will proceed with MRI to further assess at this time. MRI results with no acute intracranial abnormalities. Patient symptoms today are likely due to her urinary tract infection. She was seen by PT/OT while in the ED and was able to ambulate without difficulty. On reassessment she remained medically stable in no acute distress. Discussed with patient ED work-up and results and current plan to discharge. Will provide with prescription for cefadroxil to treat urinary tract infection. Provided with return to ED precautions and instructions concerning PCP follow-up. Patient verbalized understanding and agreement with plan. Subsequently discharged hemodynamically stable and in no acute distress. Critical Care Critical Care Time Critical Care Time: No
[2023-06-06 09:09] LABS: Basophils # 0.1 K/mm3 (0-0.2); Basophils % 0.9 % (0.1-2.0); Eosinophils # 0.4 K/mm3 (0.0-0.4); Eosinophils % 5.2 % (0.1-12.0); Hematocrit 42.5 % (37.0-47.0); Hemoglobin 14.3 g/dL (12.2-16.2); Lymphocytes # 3.6 K/mm3 (0.7-4.5); Lymphocytes % 44.6 % (10-50); Mean Corpuscular HGB Conc 33.8 g/dL (31.8-35.4); Mean Corpuscular Hemoglobin 32.6 pg (27.0-31.2); Mean Corpuscular Volume 96.5 fl (81-99); Mean Platelet Volume 7.7 fl (7.4-10.4); Monocytes # 0.6 K/mm3 (0.1-1.0); Monocytes % 7.4 % (1.7-9.3); Neutrophils # 3.4 K/mm3 (1.8-7.8); Neutrophils % 41.9 % (37.0-80.0); Platelet Count 268 K/mm3 (142-424); Red Cell Distribution Width 13.2 % (11.5-17.5); White Blood Count 8.1 K/mm3 (4.8-10.8)
[2023-06-06 09:14] LABS: Chloride 103 mmol/L (98-107); Potassium 4.4 mmoL/L (3.5-5.1); Sodium 135 mmol/L (136-145)
--- NOTE | 2023-06-06 09:16 | PC.NURSE ---
Pt returned from RAD
[2023-06-06 09:17] LABS: Alanine Aminotransferase 24 U/L (12-78); Albumin Level 3.8 g/dl (3.5-5.0); Albumin/Globulin Ratio 1.1 (1.1-1.8); Alkaline Phosphatase 123 U/L (38-126); Anion Gap 8.4 mEq/L (5-15); Aspartate Amino Transferase 35 U/L (14-36); Bilirubin,Total 0.7 mg/dl (0.2-1.3); Blood Urea Nitrogen 21 mg/dl (7-17); Calcium 8.5 mg/dl (8.4-10.2); Carbon Dioxide 28 mmol/L (22.0-30.0); Creatinine Clearance Estimated 41 mL/min (50-200); Estimated Glomerular Filt Rate 80 ml/min (>60); GFR (African American) 96 ML/MIN (>60); Globulin 3.5 g/dL (1.3-3.2); Glucose 181 mg/dl (74-100); Total Protein,Serum 7.3 g/dl (6.3-8.2)
[2023-06-06 09:20] LABS: INR 1.01 (0.9-1.1); Prothrombin Time 10.9 seconds (10.1-12.5)
[2023-06-06] MEDS: IOPAMIDOL-370 (76%);100ML BOTTLE 100 ML IV (09:21)
[2023-06-06] MEDS: 0.9 % SODIUM CHLORIDE 50 ML VIAL IV (09:21)
--- NOTE | 2023-06-06 09:24 | ECG_ITS ---
APPROVED REPORT Exam: Resting ECG HR:72 bpm ECG Measurements Heart Rate 72 AXES TX 252 P 85 QRSd 98 QRS -14 QT 425 T 64 QTc 449 Conclusion SINUS RHYTHM WITH FIRST DEGREE AV BLOCK Nonspecific IV conduction delay Late R wave progression Low voltages ABNORMAL ECG UNCONFIRMED REPORT Electronically signed by : Skinny Mackay MD 06/07/2023 06:33:32
--- NOTE | 2023-06-06 09:27 | PC.NURSE ---
Dr. Carr at BS
[2023-06-06 09:28] LABS: Magnesium 1.9 mg/dl (1.6-2.3)
[2023-06-06 09:32] LABS: Troponin I < 0.01 ng/ml (0.00-0.034)
--- NOTE | 2023-06-06 10:13 | PC.NURSE ---
Pt ambulatory to bathroom with 1 person assist
[2023-06-06 10:14] LABS: Microscopic, Urine URINE MICROSCOPIC (MICROSCOPIC)
[2023-06-06 10:19] LABS: Appearance,Urine CLEAR (Clear); Bilirubin,Urine Negative (Negative); Blood, Urine TRACE-I (Negative); Color,Urine YELLOW (Yellow); Glucose,Urine (UA) Negative (Negative); Ketones,Urine Negative (Negative); Leukocyte Esterase,Urine 3+ (Negative); Nitrate,Urine POSITIVE (Negative); PH,Urine 7.5 (5.0-8.5); Protein,Urine Negative (Negative); Specific Gravity, Urine 1.015 (1.005-1.030); Urobilinogen,Urine 0.2 EU/dl (0.2)
--- NOTE | 2023-06-06 10:56 | PC.NURSE ---
Rounded on pt. No needs voiced and call light within reach.
[2023-06-06 10:59] LABS: Bacteria,Urine 4+ /lpf; WBC,Urine 50-100 #/hpf (0-3)
--- NOTE | 2023-06-06 11:01 | PC.NURSE ---
Dr. Carr speaking with hospitalist about possible admission
--- NOTE | 2023-06-06 11:02 | EXP.MED.CON ---
History of Present Illness *Admission Date: 06/06/23 *Reason for visit:: weakness *History of present illness: Ms. Benitez is an 87-year-old female with hypertension, previous cerebellar stroke, gait instability. She presented to the ER because of complaint of weakness in her legs. She had a stroke a year ago with reportedly similar symptoms. Initially was having some aphasia with answering questions. During my interview, was able to answer all questions appropriately. Speech seemed thick but was not unintelligible. Denies headache, chest pain, shortness of breath, nausea or vomiting. No fever or chills. Questionable increased urine output but does not think this is acute. Workup in the ER with negative CTA of the head and neck. Urine grossly abnormal with nitrate positive, 3+ leuk esterase, 4+ bacteria. ER consulted medicine for evaluation given concern for TIA versus symptomatic UTI. On evaluation, patient appears comfortable. Is not dizzy at this time. Discussed case with therapy, they have seen her many times over the past few years and she has some gait instability and they have recommended use of a cane in the past but she does not use this regularly per her report at home. at bedside, states her speech is more or less her baseline at this time. Of note, recently had a change in her carvedilol dose within the past week, dose was cut in half. [facility] Disclaimer: The information contained in this section may have been updated after the patient was seen, as this information can be updated by other users. Medical History (Updated 06/06/23 @ 13:27 by Christiano Philippe MD) Bilateral serous otitis media Constipation Cryptogenic stroke Cystocele with prolapse Dyspnea History of hypertension HTN (hypertension) Impacted cerumen of right ear Incontinence in female Pulmonary fibrosis Right serous otitis media Stroke Surgical History H/O: hysterectomy History of tubal ligation Family History Mother Diabetes Stroke Father Diabetes Stroke Social History Smoking Status: Never smoker second hand exposure: No alcohol intake: current substance use type: denies use current occupational status: retired Travel in the last 8 weeks: None household members: none housing: house current occupational exposures/hazards: No caffeine: Yes Review of Systems Review of Systems Review of systems (narrative): 14 point review of systems performed, pertinent positives and negatives as per HPI Exam Data for Last 24 hours Vital signs and Labs for Last 24 Hours: Temp Pulse Resp BP Pulse Ox O2 Del Method 97.5 F L 60 18 136/80 95 Room Air 06/06/23 09:02 06/06/23 10:30 06/06/23 09:02 06/06/23 10:30 06/06/23 10:30 06/06/23 10:30 Laboratory Results - last 24 hr 06/06/23 09:00: WBC 8.1, RBC 4.40, Hgb 14.3, Hct 42.5, MCV 96.5, MCH 32.6 H, MCHC 33.8, RDW 13.2, Plt Count 268, MPV 7.7, Neut % (Auto) 41.9, Lymph % (Auto) 44.6, [place] % (Auto) 7.4, Eos % (Auto) 5.2, Baso % (Auto) 0.9, Neut # (Auto) 3.4, Lymph # (Auto) 3.6, [place] # (Auto) 0.6, Eos # (Auto) 0.4, Baso # (Auto) 0.1, PT 10.9, INR 1.01, Sodium 135 L, Potassium 4.4, Chloride 103, Carbon Dioxide 28, Anion Gap 8.4, BUN 21 H, Creatinine 0.70, Estimated Creat Clear 41, Estimated GFR 80, Est GFR ( Amer) 96, Glucose 181 H, Calcium 8.5, Magnesium 1.9, Total Bilirubin 0.7, AST 35, ALT 24, Alkaline Phosphatase 123, Troponin I < 0.01, Total Protein 7.3, Albumin 3.8, Globulin 3.5 H, Albumin/Globulin Ratio 1.1 06/06/23 10:09: Urine Color Yellow, Urine Appearance Clear, Urine pH 7.5, Ur Specific [place] 1.015, Urine Protein Negative, Urine Glucose (UA) Negative, Urine Ketones Negative, Urine Blood Trace-i, Urine Nitrate Positive, Urine Bilirubin Negative, Urine Urobilinogen 0.2, Ur Leukocyte Esterase 3+ A, Urine RBC 5-10, Urine WBC 50-100, Ur Squamous Epith Cells 3-5, Urine Bacteria 4+ I & O for Last 24 hours: Intake & Output 06/03/23 06/04/23 06/05/23 06/06/23 23:59 23:59 23:59 23:59 Weight 63.503 kg Constitutional Constitutional: no acute distress, average body habitus and chronically ill appearing *Routine HEENT Exam Head: Present normocephalic Eye: Present EOMI and PERRL ENT: Present mucous membranes moist Comments: No dizziness with eye movement. TMs normal with no effusions *Routine Neck Exam Neck: Present supple; Absent lymphadenopathy Routine Chest/Breast/Axilla Exam Comments: Palpable implanted loop recorder in left chest *Routine Respiratory Exam Respiratory: Present CTA bilaterally; Absent rhonchi, wheezes or crackles *Routine Cardiovascular Exam Cardiovascular: Present RRR *Routine Abdominal Exam Abdominal: Present soft and normoactive bowel sounds; Absent tenderness *Routine Rectal Exam Patient deferred: visual exam *Routine Exam Patient deferred: external exam *Routine Extremities Exam Extremities: Absent cyanosis, clubbing or edema *Routine Skin Exam Skin: Present warm; Absent rash *Routine Neurological Exam Neurological: Present alert, oriented X3, CN II-XII intact, normal reflexes and moving all extremities; Absent sensory deficit, motor deficit, pronator drift or altered mental status Meds Home Medications and Allergies Home Medications Medication Instructions Recorded Confirmed Type atorvastatin 40 mg tablet 40 mg PO HS #30 tabs 05/23/22 06/06/23 Rx ascorbic acid (vitamin C) 1,000 mg 1 g PO BID 06/25/22 06/06/23 History tablet aspirin 81 mg tablet,delayed 81 mg PO DAILY 06/25/22 06/06/23 History release (Adult Low Dose Aspirin) losartan 50 mg tablet 50 mg PO DAILY 07/17/22 06/06/23 History vibegron 75 mg tablet (Gemtesa) 75 mg PO DAILY #30 tabs 07/22/22 06/06/23 Rx carvedilol 12.5 mg tablet 12.5 mg PO BID 10/22/22 06/06/23 History cefadroxil 500 mg capsule 500 mg PO BID 7 days #14 caps 06/06/23 Rx New Prescriptions to Start Prescriptions: cefadroxil Gilberto Carr Allergies Allergy/AdvReac Type Severity Reaction Status Date / Time No Known Allergies Allergy Verified 06/06/23 09:02 Results Labs 06/06/23 09:00 06/06/23 09:00 Labs: Abnormal lab results 06/06/23 06/06/23 Range/Units 09:00 10:09 MCH 32.6 H (27.0-31.2) pg Sodium 135 L (136-145) mmol/L BUN 21 H (7-17) mg/dl Glucose 181 H (74-100) mg/dl Globulin 3.5 H (1.3-3.2) g/dL Ur Leukocyte Esterase 3+ A (Negative) H & H 06/06/23 Range/Units 09:00 Hgb 14.3 (12.2-16.2) g/dL Hct 42.5 (37.0-47.0) % Coagulation 06/06/23 Range/Units 09:00 INR 1.01 (0.9-1.1) All other labs normal. Assessment and Plan *Assessment and plan (1) UTI (urinary tract infection): Status: Acute Category: Medical Code(s): N39.0 - Urinary tract infection, site not specified (2) Gait instability: Status: Acute Category: Medical Code(s): R26.81 - Unsteadiness on feet (3) History of TIA (transient ischemic attack): Status: Acute Category: Medical Code(s): Z86.73 - Personal history of transient ischemic attack (TIA), and cerebral infarction without residual deficits (4) HTN (hypertension): Status: Acute Qualifiers: Hypertension type: unspecified Qualified Code(s): I10 - Essential (primary) hypertension Category: Medical Code(s): I10 - Essential (primary) hypertension Plan Ms. Benitez is a pleasant 87-year-old female who presented with weakness. Discussed case with ER physician, requested evaluation due to concern for possible TIA versus symptomatic UTI. On evaluation, patient has no focal neurologic symptoms. Reviewed CT images of head and neck along with MRI images of head. Patient has no acute intracranial process. No acute strokes noted. Given weakness and fatigue, history of previous strokes, advanced age, and grossly abnormal UA, symptoms most likely secondary to UTI. Recommend continuing antibiotics. Received dose of ceftriaxone in the ER. Will defer antibiotic choice to ER physician. Therapy was consulted to evaluate patient, she appears at baseline level of function. Agree the patient is stable for discharge home to complete antibiotics as an outpatient. Recommend close follow-up with PCP for reevaluation this coming week. In regard to TIA, stroke history, patient is on statin and aspirin. Continue at this time. No indication for antiplatelet medication. Continue blood pressure control with current regimen including carvedilol and losartan.
--- NOTE | 2023-06-06 11:08 | PC.NURSE ---
DR ROBERTSON AT BEDSIDE
--- NOTE | 2023-06-06 11:12 | MR_ITS ---
FINAL REPORT CLINICAL HISTORY: CONCERN TIA COMPARISON: 07/04/2022 FINDINGS: Multiplanar MR imaging of the brain was performed without contrast. There is mild age-appropriate atrophy. There are scattered foci of increased T2 signal in the cerebral white matter that have a nonspecific appearance but likely represent mild chronic ischemic/gliotic changes. There is no evidence of intracranial hemorrhage or mass. No abnormal ventricular dilatation is identified. No abnormal extra-axial fluid collection is seen. No abnormality is seen on the diffusion weighted images. There are bilateral chronic infarcts including the left lentiform nucleus and right cerebellar hemisphere. Normal major vessel vascular flow voids are seen. IMPRESSION: Age-appropriate atrophy and mild chronic ischemic/gliotic changes. No acute intracranial abnormality. Reviewed, Interpreted and Dictated by Flavio Barnes III, MD Transcribed by Gillian Corrales Authenticated and [facility]
--- NOTE | 2023-06-06 11:14 | PC.NURSE ---
1109 SPOKE WITH VIDA WITH DORA PERDUE'D BRAIN MRI 1110 SPOKE WITH KILEY IN MRI, WILL TAKE PT TO MRI IN ABOUT 30 MINUTES
--- NOTE | 2023-06-06 11:25 | PC.NURSE ---
PT PLACED IN GOWN FOR MRI, PT AND FAMILY UPDATED ON POC
[2023-06-06] MEDS: CEFTRIAXONE SODIUM 2 GM in 0.9 % SODIUM CHLORIDE 100 ML IV (11:30)
--- NOTE | 2023-06-06 11:38 | PC.NURSE ---
MASTIC MAN AT BEDSIDE TO PREP PT
--- NOTE | 2023-06-06 11:42 | PC.NURSE ---
Pt gone for MRI
--- NOTE | 2023-06-06 12:33 | PC.NURSE ---
Pt returned from MRI
--- NOTE | 2023-06-06 13:12 | PC.NURSE ---
PHYSICAL THERAPY AT BEDSIDE
--- NOTE | 2023-06-06 13:50 | HMH.PTEV ---
Physical Therapy Evaluation Rehab PT IP Evaluation Start: 06/06/23 11:52 Freq: ONCE Status: Active Protocol: Document 06/06/23 13:42 PHONÉSTOR (Rec: 06/06/23 13:50 PHORANTONIO [id number]) Subjective/History History History 87 yowf who presented to the [facility] ED with c/o weakness and uncoordinated gait. Found to have UTI at this time. MRI of brain neg for acute process. She reports she lives with her spouse, 2 steps to enter the home, and she is generally independent with all mobility without AD. Subjective Subjective Pt reports she feels much better already that when she initially presented to the ED. Agrees to mobility. New diagnosis of cancer in past 12 No months? Rehab PT IP Eval Objective Appearance Patient Behavior Appropriate Patient Orientation Person,Place,Time Difficulty following instructions none Speech Pattern Clear Ambulation Patient Able to Ambulate Yes Ambulation Observation IP General Gait Pattern Observation Shuffling Step Ambulation Distance (feet) 40 Ambulation Assistive Device None Ambulation Ability Supervision/Stand by Balance Ability to Arise Able, uses arms to help Sitting Balance Steady, safe Standing Balance Steady, wide stance Dynamic Sitting Balance Ability Good Dynamic Standing Balance Ability Fair Transfers Bed Transfer Ability Supervision/Stand by Chair Transfer Ability Supervision/Stand by Sit to Stand Bed Transfer Ability Supervision/Stand by Sit to Stand Chair Transfer Ability Supervision/Stand by ROM All Extremities PT ROM Status WFL MMT All Extremities PT MMT WFL Rehab PT IP prob,goals,plan Problems Date of Evaluation: 06/06/23 Discharge Plan PT Discharge Plan Pt appears to be at baseline for all mobility at this time, no current needs for inpatient therapy. Eval Complexity Eval Charge Codes 67058 - High Complexity PHYSICIAN CERTIFICATION: I certify the specified therapy services for Jose Benitez are required, authorized, and reviewed every 30 days.
--- NOTE | 2023-06-09 05:10 | PC.NURSE ---
urine prelim cx noted and will be passed on to dayshift charge for any new physician orders.
--- NOTE | 2023-06-09 16:46 | PC.NURSE ---
Urine culture discussed with , pt dc with cefadroxil, NTD at this time
--- NOTE | 2023-06-12 14:55 | PC.NURSE ---
urine results discussed with , pt called and states she is feeling better. NTD at this time
== END 2023-06-06 13:50 | disposition home or self-care (01) ==
PROVIDERS: Emergency Provider Emergency Medicine; PCP Internal Medicine Adolescent Medicine
DX: R53.1 Weakness (principal); R42 Dizziness and giddiness; N39.0 Urinary tract infection, site not specified; I10 Essential (primary) hypertension; J84.10 Pulmonary fibrosis, unspecified; R47.89 Other speech disturbances; I44.0 Atrioventricular block, first degree; Z86.73 Personal history of transient ischemic attack (TIA), and cerebral infarction without residual deficits
CPT/HCPCS: 70450; 70496; 70498; 70551; 80053; 81001; 83735; 84484; 85025; 85610; 87086; 93005; 96374; 99285; J0696; Q9967

== ENCOUNTER 2023-08-26 11:25 | Outpatient (CLI) | payer MEDICARE, SELFPAY ==
--- NOTE | 2023-08-26 11:32 | XR_ITS ---
FINAL REPORT CLINICAL HISTORY: PAIN OF LEFT FEMUR COMPARISON: None FINDINGS: Two views of the left femur show no evidence of an acute, displaced fracture or dislocation of the visualized bony architecture. There is mild degenerative change of the left hip. The knee joint is unremarkable. IMPRESSION: No acute process. Mild degenerative change left hip. Reviewed, Interpreted and Dictated by Celestina Alatorre MD Transcribed by Keeley Hall Authenticated and [facility]
== END 2023-08-26 23:59 | disposition home or self-care (01) ==
LOC: RAD 11:26
PROVIDERS: PCP Internal Medicine Adolescent Medicine; Visit Provider Nurse Practitioner Family
DX: M89.8X5 Other specified disorders of bone, thigh (principal)
CPT/HCPCS: 73552

== ENCOUNTER 2023-08-30 09:38 | Outpatient (CLI) | payer MEDICARE, SELFPAY ==
[2023-08-30 10:02] LABS: Basophils # 0.1 K/mm3 (0-0.2); Basophils % 0.4 % (0.1-2.0); Eosinophils # 0.1 K/mm3 (0.0-0.4); Eosinophils % 0.6 % (0.1-12.0); Hematocrit 44.2 % (37.0-47.0); Hemoglobin 14.3 g/dL (12.2-16.2); Lymphocytes # 2.5 K/mm3 (0.7-4.5); Lymphocytes % 21.2 % (10-50); Mean Corpuscular HGB Conc 32.3 g/dL (31.8-35.4); Mean Corpuscular Hemoglobin 32.5 pg (27.0-31.2); Mean Corpuscular Volume 100.5 fl (81-99); Mean Platelet Volume 7.6 fl (7.4-10.4); Monocytes # 0.5 K/mm3 (0.1-1.0); Monocytes % 4.2 % (1.7-9.3); Neutrophils # 8.6 K/mm3 (1.8-7.8); Neutrophils % 73.7 % (37.0-80.0); Platelet Count 352 K/mm3 (142-424); Red Cell Distribution Width 13.3 % (11.5-17.5); White Blood Count 11.7 K/mm3 (4.8-10.8)
[2023-08-30 11:15] LABS: Hemoglobin A1C 7.5 % (4.0-6.0)
[2023-08-30 12:12] LABS: Chloride 103 mmol/L (98-107); Potassium 4.7 mmoL/L (3.5-5.1); Sodium 136 mmol/L (136-145)
[2023-08-30 12:14] LABS: Alanine Aminotransferase 28 U/L (12-78); Alkaline Phosphatase 137 U/L (38-126); Anion Gap 11.7 mEq/L (5-15); Aspartate Amino Transferase 34 U/L (14-36); Blood Urea Nitrogen 29 mg/dl (7-17); Carbon Dioxide 26 mmol/L (22.0-30.0); Estimated Glomerular Filt Rate 79 ml/min (>60); GFR (African American) 96 ML/MIN (>60)
[2023-08-30 12:15] LABS: Albumin Level 4.1 g/dl (3.5-5.0); Albumin/Globulin Ratio 1.3 (1.1-1.8); Calcium 9.4 mg/dl (8.4-10.2); Globulin 3.1 g/dL (1.3-3.2); Glucose 278 mg/dl (74-100); Total Protein,Serum 7.2 g/dl (6.3-8.2)
[2023-08-30 12:43] LABS: Thyroid Stimulating Hormone 1.33 uIU/mL (0.465-4.68)
== END 2023-08-30 23:59 | disposition home or self-care (01) ==
LOC: LAB 09:39
PROVIDERS: PCP Internal Medicine Adolescent Medicine; Visit Provider Internal Medicine Adolescent Medicine
DX: Z01.810 Encounter for preprocedural cardiovascular examination (principal); E03.9 Hypothyroidism, unspecified; R73.9 Hyperglycemia, unspecified; J84.10 Pulmonary fibrosis, unspecified
CPT/HCPCS: 36415; 80053; 83036; 84443; 85025

== ENCOUNTER 2024-04-02 22:13 | Emergency (ER) | payer MEDICARE, SELFPAY ==
[2024-04-02 22:07] VITALS: BP 168/100; PULSE 73; RESP 16; TEMP 36.8; O2SAT 96
--- NOTE | 2024-04-02 22:20 | ECG_ITS ---
APPROVED REPORT Exam: Resting ECG HR:89 bpm ECG Measurements Heart Rate 89 AXES QRSd 93 QRS -37 QT 385 T 48 QTc 431 Conclusion ATRIAL FIBRILLATION LOW QRS VOLTAGE [QRS DEFLECTION < 0.5/1.0 mV IN LIMB/CHEST LEADS] POSSIBLE ANTERIOR MYOCARDIAL INFARCTION , OF INDETERMINATE AGE [30 ms Q WAVE IN V3/V4, OR R < 0.2 mV IN V4] INFERIOR MYOCARDIAL INFARCTION , PROBABLY OLD [40+ ms Q WAVE AND/OR ST/T ABNORMALITY IN II/aVF] ABNORMAL ECG WARNING: DATA QUALITY MAY AFFECT INTERPRETATION UNCONFIRMED REPORT Electronically signed by : Christiano Flores, 04/03/2024 23:11:26
[2024-04-02 22:23] VITALS: BP 155/103; PULSE 71; RESP 22; O2SAT 95
[2024-04-02 22:26] VITALS: BP 185/87; PULSE 81; O2SAT 95
[2024-04-02 22:30] VITALS: BP 188/88; PULSE 70; RESP 21; O2SAT 97
--- NOTE | 2024-04-02 22:36 | CT_ITS ---
PROCEDURE INFORMATION: Exam: CT Lumbar Spine Without Contrast Exam date and time: 04/02/2024 11:03 PM Age: 88 years old Clinical indication: Injury or trauma; Fall; Other: Pain; Additional info: Trauma, critical injury suspected TECHNIQUE: Imaging protocol: Computed tomography of the lumbar spine without contrast. Radiation optimization: All CT scans at this facility use at least one of these dose optimization techniques: automated exposure control; mA and/or kV adjustment per patient size (includes targeted exams where dose is matched to clinical indication); or iterative reconstruction. COMPARISON: CR [id number] XR lumbar spine min 4V 07/08/2018 4:42 PM FINDINGS: Bones/joints: There is a mild S shaped scoliosis of the thoracic spine. Severe degenerative disc disease is noted from L2 through L5. Diffuse severe facet arthropathy is present. There is no acute fracture. There is [id number]-[id number] bilateral foraminal stenosis at L5-S1 and on the right at L3-L4 and L4-L5. There is moderate central canal stenosis at L2-L3 and L3-L4. Soft tissues: Unremarkable. Other findings: The abdomen is reported separately. IMPRESSION: No acute fracture of the lumbar spine. Diffuse significant degenerative change as noted.
--- NOTE | 2024-04-02 22:36 | CT_ITS ---
PROCEDURE INFORMATION: Exam: CT Head Without Contrast Exam date and time: 04/02/2024 10:55 PM Age: 88 years old Clinical indication: Injury or trauma; Fall; Other: Pain; Additional info: Trauma, critical injury suspected TECHNIQUE: Imaging protocol: Computed tomography of the head without contrast. Radiation optimization: All CT scans at this facility use at least one of these dose optimization techniques: automated exposure control; mA and/or kV adjustment per patient size (includes targeted exams where dose is matched to clinical indication); or iterative reconstruction. COMPARISON: 1. CT HEAD/BRAIN WO CON 06/06/2023 9:08 AM 2. MR HEAD/BRAIN WO CON 06/06/2023 11:40 AM FINDINGS: Brain: 4 x 5 mm hyperdense nodular focus at the posterior aspect of the septum pellucidum. No midline shift or mass effect. Chronic left basal ganglia and right cerebellar infarcts. Additional suggestion of an old central pontine infarct. Similar pattern of hypodensities within the cerebral white matter most consistent with chronic small-vessel ischemic changes. Cerebral ventricles: No ventriculomegaly. Paranasal sinuses: Visualized sinuses are unremarkable. No fluid levels. Mastoid air cells: Small right mastoid effusion. Bones: Unremarkable. No acute fracture. Soft tissues: Moderate left parietal scalp contusion associated with a small hematoma. IMPRESSION: 1. Focal posterior septum pellucidum hemorrhage measuring 4 x 5 mm. 2. Moderate left parietal scalp contusion associated with a small hematoma. No calvarial fracture.
--- NOTE | 2024-04-02 22:36 | CT_ITS ---
PROCEDURE INFORMATION: Exam: CT Thoracic Spine Without Contrast Exam date and time: 04/02/2024 10:59 PM Age: 88 years old Clinical indication: Injury or trauma; Fall; Other: Pain; Additional info: Trauma, critical injury suspected TECHNIQUE: Imaging protocol: Computed tomography of the thoracic spine without contrast. Radiation optimization: All CT scans at this facility use at least one of these dose optimization techniques: automated exposure control; mA and/or kV adjustment per patient size (includes targeted exams where dose is matched to clinical indication); or iterative reconstruction. COMPARISON: CT CERVICAL SPINE WO CON 04/02/2024 10:57 PM FINDINGS: Bones/joints: There are moderate degenerative changes throughout the thoracic spine. There is no vertebral body compression deformity noted. Nondisplaced fractures of the left T6 and T8 spinous processes are noted. There are nondisplaced fractures of the posterior left 3rd, 4th, 5th and 7th ribs. Soft tissues: Unremarkable. Lungs: There is significant interstitial disease involving the imaged lungs. The chest is reported separately. Pleural spaces: Note is made of a very small anterior left pneumothorax. IMPRESSION: 1. Nondisplaced fractures of the left T6 and T8 spinous processes and the posterior left 3rd, 4th, 5th and 7th ribs. 2. Please refer to the report of CT of the chest for a complete evaluation. These images demonstrate diffuse interstitial lung disease and a small anterior left pneumothorax.
--- NOTE | 2024-04-02 22:36 | CT_ITS ---
PROCEDURE INFORMATION: Exam: CTA Neck With Contrast Exam date and time: 04/02/2024 11:08 PM Age: 88 years old Clinical indication: Injury or trauma; Fall; Other: Pain; Additional info: Trauma, critical injury suspected TECHNIQUE: Imaging protocol: Computed tomographic angiography of the neck with contrast. Exam focused on the cervical segments of the vasculature. 3D rendering (Not supervised by radiologist): MIP and/or 3D reconstructed images were created by the technologist. Radiation optimization: All CT scans at this facility use at least one of these dose optimization techniques: automated exposure control; mA and/or kV adjustment per patient size (includes targeted exams where dose is matched to clinical indication); or iterative reconstruction. Contrast material: ISOVUE; Contrast volume: 80 ml; Contrast route: INTRAVENOUS (IV); COMPARISON: CT ANGIO NECK 06/06/2023 9:08 AM FINDINGS: Right common carotid artery: Mild atherosclerotic narrowing of the carotid bulb without flow-limiting stenosis. No dissection or occlusion. Right internal carotid artery: Mild stenosis at the origin. No dissection or occlusion. Right external carotid artery: No occlusion or stenosis of the origin. Left common carotid artery: No stenosis. No dissection or occlusion. Left internal carotid artery: Mild stenosis of the origin. No dissection or occlusion. Left external carotid artery: No occlusion or stenosis of the origin. Right vertebral artery: No stenosis. No dissection or occlusion. Left vertebral artery: No stenosis. No dissection or occlusion. Soft tissues: Normal. No significant soft tissue swelling. Bones/joints: No acute fracture. 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 REFERENCES: NASCET CRITERIA. The degree of stenosis in the cervical segment of the internal carotid artery is based on NASCET criteria. Normal is no stenosis. Mild is less than 50% stenosis. Moderate is 50-69% stenosis. Severe is 70% to 99% stenosis. Total occlusion is no detectable patent lumen.
--- NOTE | 2024-04-02 22:36 | CT_ITS ---
PROCEDURE INFORMATION: Exam: CTA Abdomen and Pelvis With Contrast Exam date and time: 04/02/2024 11:11 PM Age: 88 years old Clinical indication: Injury or trauma; Fall; Other: Pain; Additional info: Trauma, critical injury suspected TECHNIQUE: Imaging protocol: Computed tomographic angiography of the abdomen and pelvis with contrast. Exam focused on the arteries. 3D rendering (Not supervised by radiologist): MIP and/or 3D reconstructed images were created by the technologist. Radiation optimization: All CT scans at this facility use at least one of these dose optimization techniques: automated exposure control; mA and/or kV adjustment per patient size (includes targeted exams where dose is matched to clinical indication); or iterative reconstruction. Contrast material: ISOVUE; Contrast volume: 80 ml; Contrast route: INTRAVENOUS (IV); COMPARISON: CR HIPCMLT XR hip LT 2-3V w/pelvis 07/08/2018 4:42 PM FINDINGS: Aorta: No aortic aneurysm. No aortic dissection. There is moderate to severe calcific atherosclerotic disease. Celiac trunk and mesenteric arteries: No occlusion. 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 Renal arteries: No occlusion or significant stenosis left renal artery and accessory right renal artery. Greater than 50% ostial stenosis main right renal artery. Right iliac arteries: No occlusion or significant stenosis. Left iliac arteries: No occlusion or significant stenosis. Liver: No mass. Gallbladder and biliary ducts: The gallbladder is absent. There is no biliary ductal dilation. Pancreas: Unremarkable. No mass. No ductal dilation. Spleen: Unremarkable. No splenomegaly. Adrenal glands: Unremarkable. No mass. Kidneys and ureters: Unremarkable. No solid mass. No hydronephrosis. Stomach and bowel: Right lower quadrant bowel anastomosis. No obstruction. No mucosal thickening. Prominent fecal content throughout the colon. Left colon diverticula without acute inflammation. Appendix: No evidence of appendicitis. Intraperitoneal space: Mesh is noted within the region of the cul-de-sac. Lymph nodes: Unremarkable. No enlarged lymph nodes. Urinary bladder: There is some degree of pelvic prolapse present. Irregular wall thickening right posterior bladder wall inferiorly. Reproductive: The uterus is absent. Bones/joints: No acute fractures. The lumbar spine is reported separately. Soft tissues: Unremarkable. IMPRESSION: 1. No traumatic vascular injury. 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 2. No acute process is evident within the abdomen or pelvis. 3. Irregular bladder wall thickening posteriorly on the right. Further evaluation is warranted. 4. Other nonurgent findings as noted.
--- NOTE | 2024-04-02 22:36 | CT_ITS ---
PROCEDURE INFORMATION: Exam: CT Cervical Spine Without Contrast Exam date and time: 04/02/2024 10:57 PM Age: 88 years old Clinical indication: Injury or trauma; Fall; Other: Pain; Additional info: Trauma, critical injury suspected TECHNIQUE: Imaging protocol: Computed tomography of the cervical spine without contrast. Radiation optimization: All CT scans at this facility use at least one of these dose optimization techniques: automated exposure control; mA and/or kV adjustment per patient size (includes targeted exams where dose is matched to clinical indication); or iterative reconstruction. COMPARISON: CT CERVICAL SPINE WO CON 04/02/2024 10:57 PM FINDINGS: Bones: Cervical vertebrae normal in height. No acute fracture. Minimal anterolisthesis C4 on C5, C7 on T1, T1 and T2, and T2 on T3. Mild dextroconvex curvature. Maintained craniocervical junction. Multilevel degenerative changes. Varying degrees of neural foraminal narrowing. No severe spinal canal stenosis Lungs: Lung apices are normal. Vasculature: Bilateral carotid artery calcifications. Soft tissues: Unremarkable. IMPRESSION: No acute osseous findings.
--- NOTE | 2024-04-02 22:36 | CT_ITS ---
PROCEDURE INFORMATION: Exam: CTA Head With Contrast, Arteriography Exam date and time: 04/02/2024 11:08 PM Age: 88 years old Clinical indication: Injury or trauma; Fall; Other: Pain; Additional info: Trauma, critical injury suspected TECHNIQUE: Imaging protocol: Computed tomographic angiography of the head with contrast. Exam focused on the arteries. 3D rendering (Not supervised by radiologist): MIP and/or 3D reconstructed images were created by the technologist. Radiation optimization: All CT scans at this facility use at least one of these dose optimization techniques: automated exposure control; mA and/or kV adjustment per patient size (includes targeted exams where dose is matched to clinical indication); or iterative reconstruction. Contrast material: ISOVUE; Contrast volume: 80 ml; Contrast route: INTRAVENOUS (IV); COMPARISON: CT ANGIO HEAD 06/06/2023 9:08 AM FINDINGS: ANTERIOR CIRCULATION: Right internal carotid artery: Mild atherosclerotic narrowing of the intracranial segment without flow-limiting stenosis. No aneurysm. Right middle cerebral artery: No occlusion or significant stenosis. No aneurysm. Right anterior cerebral artery: Mild narrowing of the A1 segment without flow-limiting stenosis. No aneurysm. Left internal carotid artery: Mild atherosclerotic narrowing of the intracranial segment without flow-limiting stenosis. No aneurysm. Left middle cerebral artery: No occlusion or significant stenosis. No aneurysm. Left anterior cerebral artery: No occlusion or significant stenosis. No aneurysm. POSTERIOR CIRCULATION: Right vertebral artery: No occlusion or significant stenosis. No aneurysm. Left vertebral artery: Mild focal areas of V4 segment narrowing without flow-limiting stenosis. No aneurysm. Basilar artery: No occlusion or significant stenosis. No aneurysm. Right posterior cerebral artery: Mild focal areas of P1 segment narrowing without flow-limiting stenosis. No aneurysm. Left posterior cerebral artery: Mild focal areas of P1 segment narrowing without flow-limiting stenosis. No aneurysm. Brain: No definite mass, mass effect, or midline shift. Cerebral ventricles: No ventriculomegaly. Bones/joints: Unremarkable. No acute fracture. Soft tissues: Unremarkable. IMPRESSION: No large vessel stenosis or occlusion.
--- NOTE | 2024-04-02 22:36 | CT_ITS ---
PROCEDURE INFORMATION: Exam: CTA Chest With Contrast Exam date and time: 04/02/2024 11:11 PM Age: 88 years old Clinical indication: Injury or trauma; Fall; Other: Pain; Additional info: Trauma, critical injury suspected TECHNIQUE: Imaging protocol: Computed tomographic angiography of the chest with contrast. Exam focused on the arteries. 3D rendering (Not supervised by radiologist): MIP and/or 3D reconstructed images were created by the technologist. Radiation optimization: All CT scans at this facility use at least one of these dose optimization techniques: automated exposure control; mA and/or kV adjustment per patient size (includes targeted exams where dose is matched to clinical indication); or iterative reconstruction. Contrast material: ISOVUE; Contrast volume: 80 ml; Contrast route: INTRAVENOUS (IV); COMPARISON: CT CHEST WO CON 12/16/2019 11:05 AM FINDINGS: Pulmonary arteries: Normal. No pulmonary emboli. Aorta: Unremarkable. No aortic aneurysm. No aortic dissection. Lungs: There is significant peripheral interstitial lung disease most prominent at the bases. Pleural spaces: There is a small anterior left pneumothorax noted. There is a trace left pleural effusion. Heart: Unremarkable. Mild cardiomegaly. No pericardial effusion. Lymph nodes: Unremarkable. No enlarged lymph nodes. Bones/joints: There are degenerative changes of both shoulders greater on the left. Moderate degenerative changes of the thoracic spine. Nondisplaced fractures of the posterior left 3rd, 4th, 5th and 7th ribs and associated fractures of the lateral 3rd, 4th and 5th ribs. lateral segmental components of the segmental component. Nondisplaced fracture left T6 and T8 transverse processes. Soft tissues: Unremarkable. IMPRESSION: 1. Small left anterior pneumothorax and trace left pleural effusion. 2. Segmental fractures of the posterior and lateral left 3rd, 4th and 5th ribs and fracture of the posterior left 7th rib. The lateral fractures of the 4th and 5th ribs are slightly displaced. Nondisplaced fractures left T6 and T8 transverse processes. 3. No acute vascular injury.
--- NOTE | 2024-04-02 22:38 | HMH.EDGENADL ---
Discharge Plan Disposition Patient Disposition: Xfer Other Prescriptions Prescriptions: No Action Gemtesa 75 mg tablet 75 mg PO DAILY Qty: 30 2RF carvedilol 12.5 mg tablet 12.5 mg PO BID aspirin [Adult Low Dose Aspirin] 81 mg tablet,delayed release (DR/EC) 81 mg PO DAILY ascorbic acid (vitamin C) 1,000 mg tablet 1 g PO BID losartan 50 mg tablet 50 mg PO DAILY atorvastatin 40 mg Tablet 40 mg PO HS Qty: 30 0RF cefadroxil 500 mg capsule 500 mg PO BID 7 Days Qty: 14 0RF Referrals Follow up/Referrals: Skinny Mackay MD [Primary Care Provider] - See instructions Clinical Impressions Clinical Impression: Intracranial hemorrhage, Fall down stairs, Abrasion of scalp, Avulsion of scalp, Contusion of left shoulder, Multiple rib fractures involving four or more ribs, Multiple transverse process fractures Pneumothorax Qualifiers: Pneumothorax type: traumatic Encounter type: initial encounter Qualified Code(s): S27.0XXA - Traumatic pneumothorax, initial encounter Stand Alone Forms Stand Alone Forms: Transfer Record - ED Print Language Print Language: Tuvaluan Discharge ED Provider: Cheko Isaac General Adult HPI <Haylee Flores MD - Last Filed: 04/02/24 22:41> General Stated complaint: Trauma Alert/fall Time Seen by Provider: 04/02/24 22:26 History of Present Illness HPI narrative: Patient is an 88-year-old female brought in by EMS for fall down stairs. She states that she fell mechanical fall down 5 stairs landing onto her head sustaining a scalp laceration she was bleeding and right placed in a c-collar immobilized and sent to the emergency department. No loss of consciousness no acute neurologic deficits. She states that all of the other than significant shoulder pain on the left she denies any other significant pain at the moment she even states that her head does not hurt. She denies being on anticoagulants does take a daily aspirin. She did not have a syncopal episode that she claims. Related Data Home Medications ?Medication ?Instructions ?Recorded ?Confirmed ascorbic acid (vitamin C) 1,000 mg 1 g PO BID 06/25/22 06/06/23 tablet aspirin 81 mg tablet,delayed 81 mg PO DAILY 06/25/22 06/06/23 release (Adult Low Dose Aspirin) losartan 50 mg tablet 50 mg PO DAILY 07/17/22 06/06/23 carvedilol 12.5 mg tablet 12.5 mg PO BID 10/22/22 06/06/23 Previous Rx's ?Medication ?Instructions ?Recorded atorvastatin 40 mg tablet 40 mg PO HS #30 tabs 05/23/22 vibegron 75 mg tablet (Gemtesa) 75 mg PO DAILY #30 tabs 07/22/22 cefadroxil 500 mg capsule 500 mg PO BID 7 days #14 caps 06/06/23 Allergies Allergy/AdvReac Type Severity Reaction Status Date / Time No Known Allergies Allergy Verified 06/06/23 09:02 [facility] <Haylee Flores MD - Last Filed: 04/02/24 22:41> [facility] Disclaimer: The information contained in this section may have been updated after the patient was seen, as this information can be updated by other users. Medical History (Updated 04/03/24 @ 00:55 by Cheko Isaac MD) Incontinence in female Cystocele with prolapse Constipation HTN (hypertension) Cryptogenic stroke Dyspnea Right serous otitis media Impacted cerumen of right ear Bilateral serous otitis media Stroke History of hypertension Pulmonary fibrosis Surgical History History of tubal ligation H/O: hysterectomy Family History Mother Diabetes Stroke Father Diabetes Stroke Social History Smoking Status: Never smoker second hand exposure: No alcohol intake: current alcohol intake frequency: holidays/special occasions only substance use type: denies use current occupational status: retired Travel in the last 8 weeks: None household members: none housing: house current occupational exposures/hazards: No caffeine: Yes Other Medical History Have you received the Flu Vaccine for this season: No Have you received the Pneumonia Vaccine: Yes <Haylee Flores MD - Last Filed: 04/02/24 22:41> ROS Obtained: Yes All systems reviewed & no additional complaints except as documented Physical Exam <Haylee Flores MD - Last Filed: 04/02/24 22:41> General General appearance: alert (Primary assessment intact second assessment as below) Head Head exam: other (Patient logrolled there is a small superficial laceration/abrasion that is well-approximated on the right occipital region of the left superior lateral aspect of the scalp as well as some surrounding abrasions no other significant lacerations) Chest Chest inspection: Present normal inspection; Absent tenderness Respiratory Respiratory exam: Present normal lung sounds bilaterally; Absent respiratory distress Cardiovascular Cardiovascular exam: Present regular rate; Absent normal rhythm Abdominal Exam Abdominal exam: Present soft and distention; Absent tenderness Extremities Exam Extremities exam: Present full ROM; Absent tenderness Back Exam Back 1 view image: 1. Abrasions and tenderness to palpation Neurological Exam Neurological exam: Present alert, oriented X3, CN II-XII intact and normal gait; Absent motor sensory deficit Medical Decision Making <Haylee Flores MD - Last Filed: 04/02/24 22:41> Medical Records Screening: Per USPSTF and CDC recommendations, given the prevalence of disease in our region, it is our hospital?s policy to screen for HIV and viral Hepatitis for all patients aged 18 and over and those with ongoing risk factors. Pankaj Inquiry Pt receiving controlled substance: No Vital Signs: 04/02/24 22:07 04/02/24 22:23 04/02/24 22:26 Temperature 98.2 F Temperature Source Oral Pulse Rate 71 81 Pulse Rate [Left] 73 Respiratory Rate 16 22 Blood Pressure 155/103 H 185/87 H Blood Pressure [Right Arm] 168/100 H Blood Pressure Mean [Right Arm] 122 Blood Pressure Source [Right Arm] Manual Cuff/ Auscultation Blood Pressure Position [Right Arm] Supine 02 Sat by Pulse Oximetry 96 95 95 Oxygen Delivery Method Room Air 04/02/24 22:30 04/02/24 23:13 04/02/24 23:30 Temperature 98.1 F Temperature Source Oral Pulse Rate 70 84 Pulse Rate [Left] 70 Respiratory Rate 21 18 16 Blood Pressure 188/88 H 170/110 H Blood Pressure [Right Arm] 188/91 H Blood Pressure Mean [Right Arm] 123 Blood Pressure Source [Right Arm] Manual Cuff/ Auscultation Blood Pressure Position [Right Arm] Supine 02 Sat by Pulse Oximetry 97 95 91 L Oxygen Delivery Method Room Air 04/03/24 00:00 04/03/24 00:31 04/03/24 01:00 Temperature Temperature Source Pulse Rate 85 90 94 H Pulse Rate [Left] Respiratory Rate 20 22 26 H Blood Pressure 157/90 H 166/86 H 157/88 H Blood Pressure [Right Arm] Blood Pressure Mean [Right Arm] Blood Pressure Source [Right Arm] Blood Pressure Position [Right Arm] 02 Sat by Pulse Oximetry 94 L 94 L 94 L Oxygen Delivery Method 04/03/24 01:10 Temperature 98.0 F Temperature Source Pulse Rate 96 H Pulse Rate [Left] Respiratory Rate 20 Blood Pressure 157/88 H Blood Pressure [Right Arm] Blood Pressure Mean [Right Arm] Blood Pressure Source [Right Arm] Blood Pressure Position [Right Arm] 02 Sat by Pulse Oximetry Oxygen Delivery Method Room Air Lab Data Lab Results 04/02/24 : WBC 7.2, RBC 4.61, Hgb 14.6, Hct 44.2, MCV 95.7, MCH 31.8 H, MCHC 33.2, RDW 13.1, Plt Count 262, MPV 7.3 L, Neut % (Auto) 38.8, Lymph % (Auto) 47.5, [place] % (Auto) 7.6, Eos % (Auto) 4.6, Baso % (Auto) 1.5, Neut # (Auto) 2.8, Lymph # (Auto) 3.4, [place] # (Auto) 0.6, Eos # (Auto) 0.3, Baso # (Auto) 0.1, Sodium 136, Potassium 4.2, Chloride 100, Carbon Dioxide 29, Anion Gap 11.2, BUN 17, Creatinine 0.90, Estimated GFR 59, Est GFR ( Amer) 72, Glucose 134 H, Calcium 9.1, Total Bilirubin 0.8, AST 46 H, ALT 24, Alkaline Phosphatase 137 H, Troponin I < 0.01, Total Protein 7.6, Albumin 4.3, Globulin 3.3 H, Albumin/Globulin Ratio 1.3 04/02/24 Unknown 04/02/24 Unknown Orders (Tests/Meds): ED MEDICATIONS Discontinued Medications Generic Name Dose Route Start Last Admin Trade Name Freq PRN Reason Stop Dose Admin Acetaminophen 1,000 mg 04/03/24 00:40 04/03/24 01:02 Acetaminophen 500mg Tab PO 04/03/24 00:41 1,000 mg ONCE ONE Administration Sodium Chloride 1,000 mls @ 999 mls/hr 04/02/24 22:45 04/02/24 22:48 Sod Chlor 0.9% 1000ml Bag IV 04/02/24 23:45 999 mls/hr .Q1H1M NANCY Administration Iopamidol 160 ml 04/02/24 23:22 04/02/24 23:23 Iopamidol-370 (76%);100ml Bottle IV 04/02/24 23:23 160 ml ONCE ONE Administration Sodium Chloride 100 ml 04/02/24 23:22 04/02/24 23:23 0.9 % Sodium Chloride 50 Ml Vial IV 04/02/24 23:23 100 ml ONCE ONE Administration Sodium Chloride 10 ml 04/02/24 23:22 04/02/24 23:23 Sodium Chloride 0.9% 10ml Syr (Rad Only) IV 05/02/24 23:21 10 ml NEEDED PRN Administration Maintain IV Site ORDERS Category Date Time Status CT angio abdomen pelvis Stat Cat Scan 04/02/24 22:[address] angio chest - dissection Stat Cat Scan 04/02/24 22:[address] angio head Stat Cat Scan 04/02/24 22:[address] angio neck Stat Cat Scan 04/02/24 22:[address] cervical spine wo con Stat Cat Scan 04/02/24 22:[address] head/brain wo con Stat Cat Scan 04/02/24 22:[address] lumbar spine wo con Stat Cat Scan 04/02/24 22:[address] thoracic spine wo con Stat Cat Scan 04/02/24 22:36 Completed POCUS Point of Care (ER Only) Stat Exams 04/02/24 22:28 Completed CBC w/Auto Diff [Complete Blood Count Auto Diff] Stat Lab 04/02/24 Completed CMP [Comprehensive Metabolic Panel] Stat Lab 04/02/24 Completed Trop I [Troponin I] Stat Lab 04/02/24 Completed Troponin I Q3H Lab 04/03/24 01:45 Ordered Medical Decision Narrative: Patient with above history and physical with significant mechanism falling down 5 stairs with a scalp abrasion that does not require any approximation. Primary assessment was unremarkable secondary assessment demonstrated pain and abrasions over the superior lateral aspect of her head shoulder without any other obvious injuries however given her mechanism will get full trauma scans and evaluation with blood work. E-FAST was negative IV fluids have been administered she denied the need for any pain medication at the moment care will be transitioned to Dr. Liberty Isaac at 11 PM for further evaluation and management. <Cheko Isaac MD - Last Filed: 04/03/24 03:17> Vital Signs: 04/02/24 22:07 04/02/24 22:23 04/02/24 22:26 Temperature 98.2 F Temperature Source Oral Pulse Rate 71 81 Pulse Rate [Left] 73 Respiratory Rate 16 22 Blood Pressure 155/103 H 185/87 H Blood Pressure [Right Arm] 168/100 H Blood Pressure Mean [Right Arm] 122 Blood Pressure Source [Right Arm] Manual Cuff/ Auscultation Blood Pressure Position [Right Arm] Supine 02 Sat by Pulse Oximetry 96 95 95 Oxygen Delivery Method Room Air 04/02/24 22:30 04/02/24 23:13 04/02/24 23:30 Temperature 98.1 F Temperature Source Oral Pulse Rate 70 84 Pulse Rate [Left] 70 Respiratory Rate 21 18 16 Blood Pressure 188/88 H 170/110 H Blood Pressure [Right Arm] 188/91 H Blood Pressure Mean [Right Arm] 123 Blood Pressure Source [Right Arm] Manual Cuff/ Auscultation Blood Pressure Position [Right Arm] Supine 02 Sat by Pulse Oximetry 97 95 91 L Oxygen Delivery Method Room Air 04/03/24 00:00 04/03/24 00:31 04/03/24 01:00 Temperature Temperature Source Pulse Rate 85 90 94 H Pulse Rate [Left] Respiratory Rate 20 22 26 H Blood Pressure 157/90 H 166/86 H 157/88 H Blood Pressure [Right Arm] Blood Pressure Mean [Right Arm] Blood Pressure Source [Right Arm] Blood Pressure Position [Right Arm] 02 Sat by Pulse Oximetry 94 L 94 L 94 L Oxygen Delivery Method 04/03/24 01:10 Temperature 98.0 F Temperature Source Pulse Rate 96 H Pulse Rate [Left] Respiratory Rate 20 Blood Pressure 157/88 H Blood Pressure [Right Arm] Blood Pressure Mean [Right Arm] Blood Pressure Source [Right Arm] Blood Pressure Position [Right Arm] 02 Sat by Pulse Oximetry Oxygen Delivery Method Room Air Lab Data Lab Results 04/02/24 : WBC 7.2, RBC 4.61, Hgb 14.6, Hct 44.2, MCV 95.7, MCH 31.8 H, MCHC 33.2, RDW 13.1, Plt Count 262, MPV 7.3 L, Neut % (Auto) 38.8, Lymph % (Auto) 47.5, [place] % (Auto) 7.6, Eos % (Auto) 4.6, Baso % (Auto) 1.5, Neut # (Auto) 2.8, Lymph # (Auto) 3.4, [place] # (Auto) 0.6, Eos # (Auto) 0.3, Baso # (Auto) 0.1, Sodium 136, Potassium 4.2, Chloride 100, Carbon Dioxide 29, Anion Gap 11.2, BUN 17, Creatinine 0.90, Estimated GFR 59, Est GFR ( Amer) 72, Glucose 134 H, Calcium 9.1, Total Bilirubin 0.8, AST 46 H, ALT 24, Alkaline Phosphatase 137 H, Troponin I < 0.01, Total Protein 7.6, Albumin 4.3, Globulin 3.3 H, Albumin/Globulin Ratio 1.3 Orders (Tests/Meds): ED MEDICATIONS Discontinued Medications Generic Name Dose Route Start Last Admin Trade Name Freq PRN Reason Stop Dose Admin Acetaminophen 1,000 mg 04/03/24 00:40 04/03/24 01:02 Acetaminophen 500mg Tab PO 04/03/24 00:41 1,000 mg ONCE ONE Administration Sodium Chloride 1,000 mls @ 999 mls/hr 04/02/24 22:45 04/02/24 22:48 Sod Chlor 0.9% 1000ml Bag IV 04/02/24 23:45 999 mls/hr .Q1H1M NANCY Administration Iopamidol 160 ml 04/02/24 23:22 04/02/24 23:23 Iopamidol-370 (76%);100ml Bottle IV 04/02/24 23:23 160 ml ONCE ONE Administration Sodium Chloride 100 ml 04/02/24 23:22 04/02/24 23:23 0.9 % Sodium Chloride 50 Ml Vial IV 04/02/24 23:23 100 ml ONCE ONE Administration Sodium Chloride 10 ml 04/02/24 23:22 04/02/24 23:23 Sodium Chloride 0.9% 10ml Syr (Rad Only) IV 05/02/24 23:21 10 ml NEEDED PRN Administration Maintain IV Site ORDERS Category Date Time Status CT angio abdomen pelvis Stat Cat Scan 04/02/24 22:[address] angio chest - dissection Stat Cat Scan 04/02/24 22:[address] angio head Stat Cat Scan 04/02/24 22:[address] angio neck Stat Cat Scan 04/02/24 22:[address] cervical spine wo con Stat Cat Scan 04/02/24 22:[address] head/brain wo con Stat Cat Scan 04/02/24 22:[address] lumbar spine wo con Stat Cat Scan 04/02/24 22:[address] thoracic spine wo con Stat Cat Scan 04/02/24 22:36 Completed POCUS Point of Care (ER Only) Stat Exams 04/02/24 22:28 Completed CBC w/Auto Diff [Complete Blood Count Auto Diff] Stat Lab 04/02/24 Completed CMP [Comprehensive Metabolic Panel] Stat Lab 04/02/24 Completed Trop I [Troponin I] Stat Lab 04/02/24 Completed Troponin I Q3H Lab 04/03/24 01:45 Ordered Medical Decision Narrative: Patient with above history and physical with significant mechanism falling down 5 stairs with a scalp abrasion that does not require any approximation. Primary assessment was unremarkable secondary assessment demonstrated pain and abrasions over the superior lateral aspect of her head shoulder without any other obvious injuries however given her mechanism will get full trauma scans and evaluation with blood work. E-FAST was negative IV fluids have been administered she denied the need for any pain medication at the moment care will be transitioned to Dr. Liberty Isaac at 11 PM for further evaluation and management. Marlin GARNER: I assumed care of the patient at the time of handoff from the prior provider. On reassessment patient remains hemodynamically stable. She has a history of hypertension and prior strokes on daily baby aspirin. She also history of pulmonary fibrosis. CT imaging interpreted by me and radiology. She has a focal posterior septum pellucid him hemorrhage measuring 4x5 millimeters. She has left segmental (posterior and lateral) ribs 3, 4, 5 as well as posterior left seventh rib. She has a small anterior she also has transverse process fractures of T6 and 8. Given these acute traumatic injuries, patient requires transfer to the level 1 trauma center for further evaluation and management. She was given an incentive spirometer and was able to pull 1000. I discussed the case with the family. I discussed the patient with [facility] [place] and she was accepted in transfer. On 04/02/24, the high probability of a clinically significant, sudden or life threatening deterioration of the following system(s) required my full and direct attention, intervention and personal management. The time I documented below is in addition to time spent performing reported procedures but includes the following listed in this critical care notation. Total critical care time 45 minutes. Procedures <Haylee Flores MD - Last Filed: 04/02/24 22:41> Miscellaneous Procedure Procedure Performed: Limited EFAST ultrasound Indication: Blunt trauma Views: [LUQ, RUQ, Pelvis, Limited Cardiac, Limited Thoracic] Interpretation: Peritoneal Free Fluid: No free fluid Pericardial effusion: Absent Right thoracic free Fluid: Absent Left thoracic Free Fluid: Absent Right lung pneumothorax: Absent Left Lung pneumothorax: Absent Impression: Negative EFAST ultrasound Images were saved to permanent archive The study was technically adequate CPT 54999-54 (limited cardiac) 82219-83 (limited abdominal) 07129-87 (chest) This study was performed by me, and I personally interpreted all images/videos. Based on my clinical judgement, these images were adequate and did not necessitate further imaging. <Cheko Isaac MD - Last Filed: 04/03/24 03:17> Laceration Laceration 1: Site: scalp Side (If applicable): left Size (cm): 1 Description: linear and irregular Depth: simple, single layer Pre-repair: wound explored and irrigated extensively Skin layer closed with: Dermabond Critical Care <Haylee Flores MD - Last Filed: 04/02/24 22:41> Critical Care Time Critical Care Time: Yes Attestation: On 04/02/24, the high probability of a clinically significant, sudden or life threatening deterioration of the following system(s) required my full and direct attention, intervention and personal management. The time I documented below is in addition to time spent performing reported procedures but includes the following listed in this critical care notation. Total Time Total Critical Care Time: 35
[2024-04-02 22:42] LABS: Basophils # 0.1 K/mm3 (0-0.2); Basophils % 1.5 % (0.1-2.0); Eosinophils # 0.3 K/mm3 (0.0-0.4); Eosinophils % 4.6 % (0.1-12.0); Hematocrit 44.2 % (37.0-47.0); Hemoglobin 14.6 g/dL (12.2-16.2); Lymphocytes # 3.4 K/mm3 (0.7-4.5); Lymphocytes % 47.5 % (10-50); Mean Corpuscular HGB Conc 33.2 g/dL (31.8-35.4); Mean Corpuscular Hemoglobin 31.8 pg (27.0-31.2); Mean Corpuscular Volume 95.7 fl (81-99); Mean Platelet Volume 7.3 fl (7.4-10.4); Monocytes # 0.6 K/mm3 (0.1-1.0); Monocytes % 7.6 % (1.7-9.3); Neutrophils # 2.8 K/mm3 (1.8-7.8); Neutrophils % 38.8 % (37.0-80.0); Platelet Count 262 K/mm3 (142-424); Red Blood Count 4.61 M/mm3 (4.20-5.40); Red Cell Distribution Width 13.1 % (11.5-17.5); White Blood Count 7.2 K/mm3 (4.8-10.8)
[2024-04-02 22:48] LABS: Alanine Aminotransferase 24 U/L (12-78); Albumin Level 4.3 g/dl (3.5-5.0); Albumin/Globulin Ratio 1.3 (1.1-1.8); Alkaline Phosphatase 137 U/L (38-126); Anion Gap 11.2 mEq/L (5-15); Aspartate Amino Transferase 46 U/L (14-36); Bilirubin,Total 0.8 mg/dl (0.2-1.3); Blood Urea Nitrogen 17 mg/dl (7-17); Calcium 9.1 mg/dl (8.4-10.2); Carbon Dioxide 29 mmol/L (22.0-30.0); Chloride 100 mmol/L (98-107); Estimated Glomerular Filt Rate 59 ml/min (>60); GFR (African American) 72 ML/MIN (>60); Globulin 3.3 g/dL (1.3-3.2); Glucose 134 mg/dl (74-100); Potassium 4.2 mmoL/L (3.5-5.1); Sodium 136 mmol/L (136-145); Total Protein,Serum 7.6 g/dl (6.3-8.2)
[2024-04-02] MEDS: 0.9 % SODIUM CHLORIDE 1000ML 1,000 ML 999 ML IV (22:48)
[2024-04-02 23:02] LABS: Troponin I < 0.01 ng/ml (0.00-0.034)
--- NOTE | 2024-04-02 23:05 | PC.NURSE ---
Fast exam negative per md @ [id number]
[2024-04-02 23:13] VITALS: BP 188/91; PULSE 70; RESP 18; TEMP 36.7; O2SAT 95
[2024-04-02] MEDS: SODIUM CHLORIDE 0.9% 10ML SYR (RAD ONLY) 10 ML IV (23:23)
[2024-04-02] MEDS: 0.9 % SODIUM CHLORIDE 50 ML VIAL 100 ML IV (23:23)
[2024-04-02] MEDS: IOPAMIDOL-370 (76%);100ML BOTTLE 160 ML IV (23:23)
[2024-04-02 23:30] VITALS: BP 170/110; PULSE 84; RESP 16; O2SAT 91
[2024-04-03] VITALS: BP 157/90; PULSE 85; RESP 20; O2SAT 94
--- NOTE | 2024-04-03 00:26 | PC.NURSE ---
[facility] on phone with Dr. Isaac at this time
[2024-04-03 00:31] VITALS: BP 166/86; PULSE 90; RESP 22; O2SAT 94
[2024-04-03 01:00] VITALS: BP 157/88; PULSE 94; RESP 26; O2SAT 94
[2024-04-03] MEDS: ACETAMINOPHEN 500MG TAB 1000 MG PO (01:02)
[2024-04-03 01:10] VITALS: BP 157/88; PULSE 96; RESP 20; TEMP 36.7; O2SAT 94
== END 2024-04-03 01:30 | disposition other institution (70) ==
PROVIDERS: Student in an Organized Health Care Education/Training Program; Emergency Provider Emergency Medicine; PCP Internal Medicine Adolescent Medicine
DX: S27.0XXA Traumatic pneumothorax, initial encounter (principal); I62.9 Nontraumatic intracranial hemorrhage, unspecified; S22.49XA Multiple fractures of ribs, unspecified side, initial encounter for closed fracture; S40.012A Contusion of left shoulder, initial encounter; S08.0XXA Avulsion of scalp, initial encounter; S00.01XA Abrasion of scalp, initial encounter; M25.512 Pain in left shoulder; W10.9XXA Fall (on) (from) unspecified stairs and steps, initial encounter; Y93.9 Activity, unspecified
CPT/HCPCS: 70450; 70496; 70498; 71275; 72125; 72128; 72131; 74174; 80053; 84484; 85025; 93005; 96360; 99291; J7030; Q9967

== ENCOUNTER 2024-04-15 12:16 | Outpatient (CLI) | payer MEDICARE, SELFPAY ==
--- NOTE | 2024-04-15 12:20 | XR_ITS ---
FINAL REPORT CLINICAL HISTORY: PAIN, JOINT, SHOULDER,LEFT FINDINGS: Left shoulder Three views were obtained. There is no fracture or dislocation. There are mild degenerative changes of the AC joint. There are moderate degenerative changes of the glenohumeral joint. There are rounded calcifications near the coracoid process, likely loose bodies. IMPRESSION: Loose bodies as above. Mild and moderate degenerative changes. Reviewed, Interpreted and Dictated by Celestina Alatorre MD Transcribed by Gillian Corrales Authenticated and [facility]
== END 2024-04-15 23:59 | disposition home or self-care (01) ==
LOC: RAD 12:17
PROVIDERS: PCP Internal Medicine Adolescent Medicine; Visit Provider Nurse Practitioner Family
DX: M25.512 Pain in left shoulder (principal)
CPT/HCPCS: 73030